=== PATIENT | male | born 1980 | race African-American/Black ===

== ENCOUNTER 2020-06-10 11:12 | Emergency (ER) | payer MEDICARE ==
[~2020-06-10] VITALS: Ht 185.4 cm; Wt 93.0 kg
[2020-06-10] MEDS ORDERED: OXYCODONE HCL5 MG PO (11:52)
[2020-06-10] MEDS ORDERED: HYDROMORPHONE HC4 MG PO (11:53)
[2020-06-10] MEDS ORDERED: FAMOTIDINE40 MG PO (11:55)
[2020-06-10] MEDS ORDERED: HYDROXYUREA500 MG PO (11:55)
[2020-06-10] MEDS ORDERED: XARELTO20 MG PO (11:56)
[2020-06-10] MEDS ORDERED: NORTRIPTYLINE H50 MG PO (11:56)
[2020-06-10] MEDS ORDERED: GABAPENTIN300 MG PO (11:56)
[2020-06-10] MEDS ORDERED: TYLOPHEN500 MG PO (11:57)
[2020-06-10] MEDS ORDERED: SENNA LAXATIVE8.6 MG PO (11:57)
[2020-06-10] MEDS ORDERED: ALLERGY25 MG PO (11:58)
[2020-06-10] MEDS ORDERED: NARCAN4 MG (11:58)
--- OUTSIDE RECORDS SUMMARY | 2020-06-10 14:28 | XMS ---
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 Oxygen is the best therapy for Sickle Cell. Place 2L O2 NC regardless of O2 Saturation. IV Fluids are also a consideration and should be given, NS 1L Obtain a Retic Count and CBC at minimum Pain Management should be Dilaudid 0.5mg. up to 1.5-2.0mg total. Additional care guidelines exist for the following facilities: [facility] ( 06/07/2020 ) Hi VISIT COUNT (12 MO.) [address] [facility] [address] [facility] [place] [id number] [facility] TOTAL 32 NOTE: Visits indicate total known visits. ED/UCC VISIT TRACKING (12 MO.) 06/10/2020 11:14 [facility] [place] TYPE: Emergency COMPLAINT: - EXTREMITY PAIN 06/03/2020 17:33 [facility] Val[facility] OR [facility] TYPE: Emergency DIAGNOSES: 0. PAIN EVERYWHERE 05/26/2020 10:36 [facility] [place] TYPE: Emergency DIAGNOSES: - Sickle Cell Pain Crisis - Hb-SS disease with crisis, unspecified - Pain 05/09/2020 06:08 [facility] [place] TYPE: Emergency DIAGNOSES: - Pain - Sickle Cell Pain Crisis - Hb-SS disease with crisis, unspecified 04/28/2020 13:19 [facility] [place] TYPE: Emergency DIAGNOSES: - Generalized Pain - Pain - Hb-SS disease with crisis, unspecified 04/22/2020 09:14 [facility] [place] TYPE: Emergency DIAGNOSES: - Hb-SS disease with crisis, unspecified - crisis - Pain 03/25/2020 18:29 [facility] [place] TYPE: Emergency DIAGNOSES: - Pain in left hip - Pain in left hand - Pain in right thigh - Sickle Cell Pain Crisis - Pain in right leg - Pain in joints of unspecified hand - Hb-SS disease with crisis, unspecified - Pain in left thigh - Pain in right hip - Pain in right hand - Hypokalemia - Dorsalgia, unspecified - Other chest pain - Pain in left leg - pain 03/23/2020 01:49 [facility] [place] TYPE: Emergency DIAGNOSES: - Hb-SS disease with crisis, unspecified - Pain - Sickle Cell Crisis 03/05/2020 12:47 [facility] TYPE: Emergency DIAGNOSES: 0. GENERALIZED PAIN 03/03/2020 17:04 N[facility]ant ARGUELLES TYPE: Emergency DIAGNOSES: - Sickle-cell disease without crisis - Sickle Cell Pain Crisis - Weakness - Low back pain 02/19/2020 13:46 [facility] TYPE: Emergency DIAGNOSES: 0. PAIN EVERWHERE VOMITING 02/18/2020 15:20 [facility] [place] TYPE: Emergency DIAGNOSES: - Pain - Sickle Cell Pain Crisis - Hb-SS disease with crisis, unspecified 02/13/2020 09:29 [facility] TYPE: Emergency DIAGNOSES: 0. SICKLE CELL CRISIS 02/11/2020 16:58 Nishant ARGUELLES TYPE: Emergency DIAGNOSES: - Hb-SS disease with crisis, unspecified - Emesis - vomitting difficulty breathing 02/09/2020 12:49 N[facility]ant ARGUELLES TYPE: Emergency DIAGNOSES: - Sickle Cell Crisis - Sickle Cell Pain Crisis - Hb-SS disease with crisis, unspecified 02/06/2020 16:07 [facility] [place] TYPE: Emergency DIAGNOSES: - Sickle Cell Pain Crisis - Weakness - Hb-SS disease with crisis, unspecified 01/29/2020 11:13 [facility] [place] TYPE: Emergency DIAGNOSES: - Sickle Cell Pain Crisis - Unspecified abdominal pain - Abdominal Pain 01/28/2020 09:54 [facility] [place] TYPE: Emergency DIAGNOSES: - Sicillcell - Sickle-cell disease without crisis - Opioid dependence, uncomplicated - Pain 01/24/2020 12:18 [facility] [place] TYPE: Emergency DIAGNOSES: - Sickle Cell Pain Crisis - Hb-SS disease with crisis, unspecified - Opioid dependence, uncomplicated - Sickle cell crisis 01/22/2020 17:48 [facility] [place] TYPE: Emergency DIAGNOSES: - Hb-SS disease with crisis, unspecified - Sickle Cell Pain Crisis - Weakness Plus 12 More Visits INPATIENT VISIT TRACKING (12 MO.) 01/02/2020 14:33 [facility] [place] TYPE: Oncology DIAGNOSES: - Hyperbilirubinemia - Hb-SS disease with crisis, unspecified 12/02/2019 10:47 [facility] [place] TYPE: Internal Medicine DIAGNOSES: - Sickle Cell Crisis - Hb-SS disease with crisis, unspecified [email or web address]
== END 2020-06-10 14:16 | disposition home or self-care (01) ==
LOC: ED 11:12
DX: D57.00 Hb-SS disease with crisis, unspecified (principal); Z88.8 Allergy status to other drugs, medicaments and biological substances; Z88.0 Allergy status to penicillin; Z88.1 Allergy status to other antibiotic agents; Z91.013 Allergy to seafood; Z79.899 Other long term (current) drug therapy; Z79.891 Long term (current) use of opiate analgesic
CPT/HCPCS: 80053; 85025; 96374; 96375; 96376; 99284-25; J1170; J1200; J7030

== ENCOUNTER 2020-11-04 15:17 | Emergency (ER) | payer MEDICARE, MEDICAID ==
[~2020-11-04] VITALS: Ht 185.4 cm; Wt 81.7 kg
[~2020-11-04 15:17] MED LIST: ALLERGY25 MG PO; FAMOTIDINE40 MG PO; GABAPENTIN300 MG PO; HYDROMORPHONE HC4 MG PO; HYDROXYUREA500 MG PO; NARCAN4 MG; NORTRIPTYLINE H50 MG PO; OXYCODONE HCL5 MG PO; SENNA LAXATIVE8.6 MG PO; TYLOPHEN500 MG PO; XARELTO20 MG PO
--- OUTSIDE RECORDS SUMMARY | 2020-11-04 15:20 | XMS ---
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 No recent Security Events currently on file CRITERIA MET - 6 ED Visits in 6 Months - [facility] - Has Care Guidelines - History of Sepsis Dx - PDMP - [facility] - 2 Visits in 30 Days CARE PROVIDERS Shakeel MCCORMACK Internal Medicine Current PHONE: Unknown MARIELLE GARCIA Internal Medicine: Hematology \\T\\ 06/11/2020-Current ALEX Oncology PHONE: [phone] ROXANNE DUMONT [facility] Medicine 06/07/2020-Current PHONE: Unknown Guidelines Source: [facility] Guidelines Date: 10/30/2020 Care Recommendation: BACKGROUND: 39 y/o male patient, : 1980, with a history of chronic pain, sickle cell anemia, sickle cell crisis, chronic sickle cell pain, abdominal pain, chronic narcotic therapy. \\T\\nbsp; \\T\\nbsp; \\T\\nbsp; ASSOCIATED CONCERNS/ ASSESSMENT: \\T\\nbsp; \\T\\nbsp; \\T\\nbsp; - Controlled Substance Alert:\\T\\nbsp;Dr. Alex Delaney routinely prescribes hydromorphone and gabapentin tablets (confirmed 10/30/2020). \\T\\nbsp; - - \\T\\nbsp; - Has infusion clinic appointments for chronic dilaudid dosing, if needed, three times a week. \\T\\nbsp; - 46 ED visits between 10/31/2019 and 10/30/2020 (38 at [facility]). \\T\\ nbsp; - 03/23/2020 - "drove 45 minutes down to our ER after not getting enough pain medications at another ER.\\T\\nbsp;I confronted him about this and he did initially continue to deny it however he admitted finally that he was indeed seen earlier today." \\T\\nbsp; \\T\\nbsp; \\T\\nbsp; - Recommendation: 06/07/2019 - Per August Juan - Pain management related to disease process:\\T\\nbsp; - Oxygen is the best therapy for Sickle Cell.\\T\\nbsp;2L per N/C regardless of saturations.\\T\\nbsp; - IV fluids are also a consideration; NS 1 liter.\\T\\nbsp; - Obtain Retic Count and CBC at minimum.\\T\\nbsp; - If pain management necessary, beyond infusion clinic availability: Dilaudid 0. 5 mg up to 1.5-2.0 mg total.\\T\\nbsp; - - \\T\\nbsp; - - \\T\\nbsp; \\T\\nbsp; [facility] CONTACTS: \\T\\nbsp;PCP:\\T\\nbsp;Dr. Roxanne Gallo, [facility]\\T\\nbsp; Hematology \\T\\amp; Pain Management:\\T\\nbsp; Dr. Alex Delaney, [facility]\\T\\nbsp; Insurance: Medicare\\T\\nbsp; \\T\\nbsp; REFERENCES (Useful notes): \\T\\nbsp;03/23/2020 ED Physician Notes "Disposition"\\T\\ nbsp; \\T\\nbsp; Date of Last Review: 10/30/2020\\T\\nbsp; Date of Last Revision : 2020\\T\\nbsp; Additional care guidelines exist for the following facilities: [facility] ( 09/05/2020 ) Hi VISIT COUNT (12 MO.) [address] [facility] 2 [facility] Raymond Mijares[address] [facility] TOTAL 46 NOTE: Visits indicate total known visits. ED/UCC VISIT TRACKING (12 MO.) 11/04/2020 15:18 [facility] [place] TYPE: Emergency COMPLAINT: - SOB, IN PAIN 11/04/2020 11:07 [facility] [place] TYPE: Emergency DIAGNOSES: - Chest pain, unspecified - Chest Pain - Pain - Sickle-cell disease without crisis 10/22/2020 04:53 [facility] [place] TYPE: Emergency DIAGNOSES: - pain - Dorsalgia, unspecified 10/21/2020 08:40 [facility] [place] TYPE: Emergency DIAGNOSES: - Sickle-cell disease without crisis - Pain - Abdominal Pain 10/04/2020 04:17 [facility] [place] TYPE: Emergency DIAGNOSES: - Pain, unspecified - Sickle Cell episode - Sickle-cell disease without crisis - Sickle Cell Pain Crisis 09/30/2020 10:10 [facility] [place] TYPE: Emergency DIAGNOSES: - Hb-SS disease with crisis, unspecified - Sickle Cell Pain Crisis - Pain - Elevated white blood cell count, unspecified 09/27/2020 09:49 [facility] [place] TYPE: Emergency DIAGNOSES: - Hb-SS disease with crisis, unspecified - Vomiting (Severe) - Abdominal Pain 09/25/2020 12:42 [facility] [place] TYPE: Emergency COMPLAINT: - BODY PAIN, CRAMPING, TENSING DIAGNOSES: - Other sickle-cell disorders without crisis - Allergy to seafood - Allergy status to penicillin - detention (current) use of opiate analgesic - Other sickle-cell disorders without crisis - Allergy status to other antibiotic agents - 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 09/23/2020 20:25 [facility] [place] TYPE: Emergency DIAGNOSES: - Unspecified abdominal pain - vomiting - Hb-SS disease with crisis, unspecified - Abdominal Pain - Other specified postprocedural states - Vomiting, unspecified 09/06/2020 14:58 [facility] [place] TYPE: Emergency DIAGNOSES: - Sickle Cell Pain Crisis - Pain - Hb-SS disease with crisis, unspecified 08/26/2020 05:35 [facility] [place] TYPE: Emergency DIAGNOSES: - general pain - Sickle Cell Pain Crisis - Hb-SS disease with crisis, unspecified 08/22/2020 06:11 [facility] [place] TYPE: Emergency DIAGNOSES: - Elevated white blood cell count, unspecified - Sickle Cell Pain Crisis - Hb-SS disease with crisis, unspecified - Sickle cell 07/03/2020 01:09 [facility] [place] TYPE: Emergency DIAGNOSES: - Bacteremia - Sepsis, unspecified organism - general pain - Sickle Cell Pain Crisis 06/23/2020 11:53 [facility] [place] TYPE: Emergency DIAGNOSES: - Sickle Cell Pain Crisis - Hb-SS disease with crisis, unspecified - Sickle Cell Crisis 06/10/2020 11:14 [facility] [place] TYPE: Emergency COMPLAINT: - EXTREMITY PAIN NON INJURY DIAGNOSES: - Allergy status to penicillin - Hb-SS disease with crisis, unspecified - Allergy status to other drugs, medicaments and biological substances - Allergy to seafood - 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io DREX[facility] OR [facility] TYPE: Emergency DIAGNOSES: 0. PAIN EVERYWHERE 05/26/2020 10:36 [facility] [place] TYPE: Emergency DIAGNOSES: - Sickle Cell Pain Crisis - Hb-SS disease with crisis, unspecified - Pain 05/09/2020 06:08 [facility] [place] TYPE: Emergency DIAGNOSES: - Pain - Sickle Cell Pain Crisis - Hb-SS disease with crisis, unspecified 04/28/2020 13:19 [facility] [place] TYPE: Emergency DIAGNOSES: - Generalized Pain - Pain - Hb-SS disease with crisis, unspecified 04/22/2020 09:14 [facility] Mireya [facility]ail[facility]honny [facility] [place] TYPE: Emergency DIAGNOSES: - Hb-SS disease with crisis, unspecified - crisis - Pain Plus 26 More Visits INPATIENT VISIT TRACKING (12 MO.) 07/03/2020 15:06 [facility] TYPE: Oncology DIAGNOSES: - Bacteremia - Unspecified Escherichia coli [E. coli] as the cause of diseases classified elsewhere - severe anemia, sickle cell disease, bacteremia 07/03/2020 01:09 [facility] [place] TYPE: Internal Medicine DIAGNOSES: - Sepsis, unspecified organism - Bacteremia 01/02/2020 14:33 [facility] [place] TYPE: Oncology DIAGNOSES: - Hyperbilirubinemia - Hb-SS disease with crisis, unspecified 12/02/2019 10:47 [facility] [place] TYPE: Internal Medicine DIAGNOSES: - Sickle Cell Crisis - Hb-SS disease with crisis, unspecified [email or web address]
== END 2020-11-04 18:04 | disposition home or self-care (01) ==
LOC: ED 15:17
DX: D57.00 Hb-SS disease with crisis, unspecified (principal); F17.200 Nicotine dependence, unspecified, uncomplicated; Z88.0 Allergy status to penicillin; Z88.1 Allergy status to other antibiotic agents; Z88.8 Allergy status to other drugs, medicaments and biological substances; Z91.013 Allergy to seafood; Z79.899 Other long term (current) drug therapy; Z79.891 Long term (current) use of opiate analgesic
CPT/HCPCS: 80053; 81001; 85025; 85045; 96374; 96375; 96376; 99284-25; J1170; J2405; J7030

== ENCOUNTER 2021-02-15 03:06 | Emergency (ER) | payer MEDICARE, MEDICAID ==
[~2021-02-15] VITALS: Ht 185.4 cm; Wt 81.7 kg
== END 2021-02-15 05:20 | disposition home or self-care (01) ==
LOC: ED 03:06
DX: D57.00 Hb-SS disease with crisis, unspecified (principal); D72.829 Elevated white blood cell count, unspecified; F17.200 Nicotine dependence, unspecified, uncomplicated; Z91.013 Allergy to seafood; Z88.0 Allergy status to penicillin; Z88.1 Allergy status to other antibiotic agents; Z79.01 Long term (current) use of anticoagulants; Z79.899 Other long term (current) drug therapy
CPT/HCPCS: 80053; 85007; 85025; 85045; 96374; 96375; 99284-25; J1885; J2405; J2765; J7030

== ENCOUNTER 2023-10-30 11:13 | Inpatient (IN) | payer MEDICARE, OTHER ==
[~2023-10-30] VITALS: Ht 185.4 cm; Wt 80.5 kg
[~2023-10-30 11:13] MED LIST changes: -FAMOTIDINE40 MG PO; -NARCAN4 MG; +NARCAN4 MG NAS; +ONDANSETRON ODT8 MG PO; +PEPCID AC20 MG PO; +PROMETHAZINE HC25 M1 PO
[2023-10-30] MEDS ORDERED: ONDANSETRON ODT4 MG PO (11:26)
[2023-10-30] MEDS ORDERED: CLONAZEPAM1 M1 PO (11:27)
[2023-10-30] MEDS ORDERED: OMEPRAZOLE40 MG PO (11:27)
[2023-10-30] MEDS ORDERED: HYDROmorphone HCL 1 MG/ML SYR IV PRN ×2 (11:30→16:15)
[2023-10-30] MEDS ORDERED: ondansetron HCL 4 MG/2 ML VIAL IV ONE (11:30)
[2023-10-30] MEDS ORDERED: SODIUM CHLORIDE 0.9% 1,000 ML IV ONE (11:30)
[2023-10-30 12:55] LABS: BILIRUBIN, URINE NEGATIVE (negative); BLOOD/HGB, URINE NEGATIVE (Negative); KETONE, URINE NEGATIVE (Negative); LEUK ESTERASE, URINE NEGATIVE (negative); NITRITE, URINE NEGATIVE (negative); PH, URINE 6.5 (5-7)
[2023-10-30 13:38] LABS: ALBUMIN 4.2 g/dL (3.4-5.0); ALBUMIN/GLOBULIN RATIO 1.35 (1.1-2.4); BILIRUBIN, TOTAL 3.9 ng/dL (0.2-1.0); BUN/CREATININE RATIO 6.38 (6.0-28.6); CALCIUM 8.8 mg/dL (8.5-10.1); CREATININE, SERUM 0.94 mg/dL (0.70-1.30); PROTEIN, TOTAL 7.3 g/dL (6.4-8.2)
[2023-10-30] MEDS ORDERED: SODIUM CHLORIDE 0.9% 1,000 ML IV PRN (14:15)
[2023-10-30 14:47] LABS: HEMATOCRIT 27.4 % (35.0-50.0); HEMOGLOBIN 9.2 g/dL (12.0-18.0); MCH 38.8 (27-36); MCHC 33.5 g/dl (30-36); MCV 115.9 fl (81-99); RBC 2.36 M/ul (4.3-5.7); RDW 16.3 (10.5-15.0)
[2023-10-30 15:06] LABS: BASOPHILS, MANUAL DIFF 1; EOSINOPHILS, MANUAL DIFF 1; LYMPHOCYTES, MANUAL DIFF 40; MONOCYTES, MANUAL DIFF 5; NEUTROPHILS, MANUAL DIFF 53
[2023-10-30] MEDS ORDERED: ondansetron HCL 4 MG/2 ML VIAL IV PRN (16:00)
[2023-10-30] MEDS ORDERED: PROCHLORPERAZINE EDISYLATE 10 MG/2 ML VIAL IV PRN (16:00)
[2023-10-30] MEDS ORDERED: LACTATED RINGER'S 1,000 ML IV SCH (16:00)
[2023-10-30] MEDS ORDERED: PROMETHAZINE12.5 M1 PO (16:17)
--- NOTE | 2023-10-30 16:20 | NUR ---
PT ARRIVES TO FLOOR VIA STRETCHER. PT AMBULATES FROM STRETCHER TO BED. BEDSIDE REPORT RECIEVED FROM LUISA Petty RN. PT A&O TO ALL. VITALS COMPLETE. PT REPORTING PAIN 01/08. IV STARTED BY SAMUEL THOMASON VIA US GUIDED. 1805 PRN PAIN MEDICAITON ADMINISTERED, SEE MAR. RT CALLED TO INFORM THEM THAT PT USES CPAP HS. 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 PT AGREEABLE. PT PROVIDED SANDWICH BOX. WATER PROVIDED. PT DENIES ANY OTHER NEEDS AT THIS TIME. CALL LIGHT IN REACH.
[2023-10-30 16:30] VITALS: BP 132/78
[2023-10-30] MEDS ORDERED: CENTRUM ADULTS1 EACH PO (16:49)
--- NOTE | 2023-10-30 16:50 | NUR ---
MED REC COMPLETE
[2023-10-30] MEDS ORDERED: NICOTINE 14 MG/24 HR 1 EA TDSY TD PRN (17:00)
[2023-10-30 18:37] VITALS: BP 133/79
[2023-10-30] MEDS ORDERED: FAMOTIDINE 20 MG TAB PO PRN (19:15)
[2023-10-30] MEDS ORDERED: HYDROmorphone HCL 2 MG/ML VIAL IV PRN (19:15)
--- NOTE | 2023-10-30 19:32 | NUR ---
REPORT RECIEVED FROM DAY SHIFT RN. PATIENT RESTING IN BED EATING A SANDWICH. NO CURRENT NEEDS AT THIS TIME. CALL LIGHT IN REACH.
--- NOTE | 2023-10-30 20:13 | NUR ---
2000 LABS DRAWN BY THIS RN THROUGH IV IN LEFT UPPER ARM AND SENT TO LAB. BLOOD BAND VERIFIED BY THIS RN AND LOLA BAKER. RT REMAINS IN PATIENT ROOM.
[2023-10-30 20:25] LABS: HEMATOCRIT 22.6 % (35.0-50.0)
[2023-10-30 20:27] LABS: ANION GAP 14.4 (7-21); BUN/CREATININE RATIO 5.1 (6.0-28.6); CALCIUM 8.3 mg/dL (8.5-10.1); CREATININE, SERUM 0.98 mg/dL (0.70-1.30); POTASSIUM 3.4 mmol/L (3.5-5.1)
[2023-10-30 20:28] LABS: BASOPHILS 1.6 % (0-2); EOSINOPHILS 2.6 % (0-6); HEMOGLOBIN 7.8 g/dL (12.0-18.0); LYMPHOCYTES 35.5 % (24-44); MCH 39.7 (27-36); MCHC 34.6 g/dl (30-36); MCV 114.7 fl (81-99); MONOCYTES 10.1 % (0-12); NEUTROPHILS 50.2 % (39-80); PLATELET COUNT 342 K/uL (140-440); RBC 1.97 M/ul (4.3-5.7); RDW 15.8 (10.5-15.0)
[2023-10-30 20:39] LABS: ALBUMIN 3.6 g/dL (3.4-5.0); ALBUMIN/GLOBULIN RATIO 1.29 (1.1-2.4); BILIRUBIN, DIRECT 0.3 mg/dL (0.0-0.2); BILIRUBIN, INDIRECT 2.7 (0.1-0.7); PROTEIN, TOTAL 6.4 g/dL (6.4-8.2)
--- NOTE | 2023-10-30 20:45 | NUR ---
CALL LIGHT ANSWERED. PATIENT REPORTS 12/08 GENERALIZED BODY PAIN. PRN PAIN MEDICATION ADMINSITERED. BILAT SCLERA YELLOW, PATIENT STATES "THIS HAPPENS WHEN I AM DEHYDRATED, IT WILL GO AWAY". AM LABS SCHEDULED 10/30 AT 0600. IV FLUSHED WNL AND GOOD BLOOD RETURN. IV FLUID INFUSING PER ORDER. PATIENT HAS NO FURTHER NEEDS. CALL LIGHT IN REACH. FRESH WATER PROVIDED.
[2023-10-30 20:46] VITALS: BP 135/60
[2023-10-30 20:58] LABS: ABO A; ANTIBODY SCREEN NEGATIVE; RH NEGATIVE
[2023-10-30] MEDS ORDERED: HYDROXYUREA 500 MG CAP PO SCH (21:00)
[2023-10-30] MEDS ORDERED: MELATONIN 3 MG TAB PO PRN (21:00)
[2023-10-30] MEDS ORDERED: GABAPENTIN 300 MG CAP PO SCH ×2 (21:00)
--- NOTE | 2023-10-30 21:13 | NUR ---
COMMERCIAL CREDIT LEAD SBA PT TO BATHROOM WITH IV TOWER. PT AMBULATES WELL. PT OUTPUT NOTED AND URINAL EMPTIED. PT BACK IN BED AND CPOX RECONNECTED AND NASAL CANNULA BACK ON. PT STATES NO FURTHER NEEDS AT THIS TIME. CALL LIGHT WITHIN REACH.
--- NOTE | 2023-10-30 22:11 | NUR ---
CALL LIGHT ANSWERED. REPORTS 7/10 BODY PAIN, PRN PAIN MEDICATION ADMINISTERED. PRN SLEEP MEDICATION ADMINISTERED, SEE MAR. FRESH WATER PROVIDED. PATIENT HAS NO FURTHER NEEDS. CALL LIGHT IN REACH.
--- NOTE | 2023-10-30 23:24 | NUR ---
CALL LIGHT ANSWERED. PATIENT REPORTS 5/10 BODY PAIN. PRN PAIN MEDICATION ADMINISTERED. NO FURTHER NEEDS. CALL LIGHT IN REACH.
--- NOTE | 2023-10-31 00:36 | NUR ---
CALL LIGHT ANSWERED. PATIENT REPORTS 5/10 BODY PAIN. PRN PAIN AND NAUSEA MEDICATION ADMINISTERED PER PATIENT REQUEST. JELLO PROVIDED. NO FURTHER NEEDS. CALL LIGHT IN REACH.
[2023-10-31 01:55] VITALS: BP 118/75
--- NOTE | 2023-10-31 02:03 | NUR ---
PT REPORTS 6/10 GENERALIZED BODY PAIN, PRN PAIN MED PROVIDED. NEW BAG OF IV FLUIDS PROVIDED. ICEWATER AND WARM BLANKET PROVIDED. RN PROVIDED PT EDUCATION AND THERAPUTIC COMMUNICATION CONCERNING PLAN OF CARE AND PAIN MANAGEMENT. ALL QUESTIONS AND CONCERNS ADDRESSED. IV WNL, FLUSHED WELL. CPOX 100% ON 3L NC. PRIMARY RN IN ROOM AT THIS TIME.
--- NOTE | 2023-10-31 02:10 | NUR ---
PATIENT UP AT SIDE OF BED TO USE URINAL & VOID DARK YELLOW URINE. PATIENT BACK TO BED. NO FURTHER NEEDS. CALL LIGHT IN REACH.
--- NOTE | 2023-10-31 03:07 | NUR ---
CALL LIGHT ANSWERED. PATIENT REPORTS 6/10 BODY PAIN. PRN PAIN MEDICATIONS ADMINISTERED. NO FURTHER NEEDS. CALL LIGHT IN REACH.
[2023-10-31 04:29] VITALS: BP 122/65
--- NOTE | 2023-10-31 04:35 | NUR ---
CALL LIGHT ANSWERED. PATIENT REQUESTING PRN PAIN MEDICATION, MEDICATION ADMINISTERED. VS AND I&Os OBTAINED AND RECORDED. PATIENT DENIES FURTHER NEEDS AT THIS TIME AND STATES "I AM GOING TO TRY AND SLEEP". CALL LIGHT IN REACH.
[2023-10-31 05:26] LABS: HEMOGLOBIN 7.5 g/dL (12.0-18.0)
[2023-10-31 05:31] LABS: BASOPHILS 1.9 % (0-2); EOSINOPHILS 7.7 % (0-6); HEMATOCRIT 22.3 % (35.0-50.0); LYMPHOCYTES 46.2 % (24-44); MCHC 33.7 g/dl (30-36); MCV 115.6 fl (81-99); MONOCYTES 9.4 % (0-12); NEUTROPHILS 34.8 % (39-80); PLATELET COUNT 331 K/uL (140-440); RBC 1.93 M/ul (4.3-5.7)
--- NOTE | 2023-10-31 05:40 | NUR ---
CALL LIGHT ANSWERED. PATIENT REQUESTING MEDICATION, PRN PAIN MEDICATION ADMINSTERED. NO FURTHER NEEDS. CALL LIGHT IN REACH.
[2023-10-31 05:41] LABS: ALBUMIN 3.4 g/dL (3.4-5.0); ALBUMIN/GLOBULIN RATIO 1.26 (1.1-2.4); ANION GAP 13.6 (7-21); BILIRUBIN, TOTAL 2.7 ng/dL (0.2-1.0); BUN/CREATININE RATIO 5.15 (6.0-28.6); CALCIUM 8.3 mg/dL (8.5-10.1); CREATININE, SERUM 0.97 mg/dL (0.70-1.30); MAGNESIUM 1.6 mg/dL (1.8-2.4); PHOSPHORUS, INORGANIC 4.4 mg/dL (2.5-4.9); POTASSIUM 3.6 mmol/L (3.5-5.1); PROTEIN, TOTAL 6.1 g/dL (6.4-8.2)
--- NOTE | 2023-10-31 07:10 | NUR ---
REPORT RECEIVED FROM ALEJANDRA RN, ALL QUESTIONS ANSWERED. PT AWAKE IN BED. DENIES NEEDS AT THIS TIME CALL LIGHT IN REACH
[2023-10-31] MEDS ORDERED: PANTOPRAZOLE SODIUM 40 MG TABEC PO SCH (07:30)
--- NOTE | 2023-10-31 07:37 | NUR ---
PT C/O 11/08 GENERALIZED PAIN, GIVEN RPN PAIN MEDICATION. SEE EMAR. PT DENIES FURTHER NEEDS AT THIS TIME. CALL LIGHT IN REACH.
[2023-10-31] MEDS ORDERED: MAGNESIUM CHLORIDE 64 MG TABCR PO ONE (07:45)
[2023-10-31] MEDS ORDERED: Rivaroxaban 10 MG TAB PO SCH (09:00)
[2023-10-31] MEDS ORDERED: HYDROXYUREA 500 MG CAP PO SCH (09:00)
[2023-10-31] MEDS ORDERED: diphenhydrAMINE HCL 25 MG CAP PO SCH (09:00)
[2023-10-31 09:16] VITALS: BP 143/68
--- NOTE | 2023-10-31 11:15 | NUR ---
PT RESTING QUIETLY WITH EYES CLOSED, RESPIRATIONS EVEN AND UNLABORED. O2 SAT 97% ON 3LNC. CALL LIGHT IN REACH.
[2023-10-31] MEDS ORDERED: PHARMACY RENAL DOSE ADJUSTMENT 1 DOSE MISC PO SCH (12:00)
--- NOTE | 2023-10-31 12:34 | EKG ---
[facility] [address] [facility] [place] [address] Signed Sinus bradycardia Biventricular hypertrophy Abnormal ECG No previous ECGs available Confirmed by Filiberto Donovan MD () on 10/31/2023 12:34:30 PM Electronically Signed By: FILIBERTO DONOVAN MD 10/31/23 1234 PATIENT NAME: YVONNE GRAVES Electrocardiogram DATE OF : [birth year] PHYSICIAN: FILIBERTO DONOVAN MD REPORT #: [id number] REPORT IS CONFIDENTIAL AND NOT TO BE RELEASED WITHOUT AUTHORIZATION
[2023-10-31 13:12] VITALS: BP 117/72
[2023-10-31 17:47] VITALS: BP 138/83
[2023-10-31 18:03] LABS: BASOPHILS 1.3 % (0-2); EOSINOPHILS 10.8 % (0-6); HEMATOCRIT 22.1 % (35.0-50.0); HEMOGLOBIN 7.7 g/dL (12.0-18.0); LYMPHOCYTES 42.2 % (24-44); MCH 39.7 (27-36); MCHC 34.7 g/dl (30-36); MCV 114.6 fl (81-99); MONOCYTES 11.8 % (0-12); NEUTROPHILS 33.9 % (39-80); PLATELET COUNT 335 K/uL (140-440); RBC 1.93 M/ul (4.3-5.7); RDW 15.8 (10.5-15.0)
--- NOTE | 2023-10-31 20:00 | NUR ---
PT UTILIZES CALL LIGHT, REQUESTS PRN PAINMEDICATION. PT RATES PAIN 6/10, GENERALIZED. PRN ADMINISTERED. SEE EMAR. PT PROVIDED WITH FRESH SODA. URINAL EMPTIED. PT DENIES FURTHER NEEDS AT THIS TIME. CALL LIGHT IN REACH.
[2023-10-31 21:08] VITALS: BP 123/79
--- NOTE | 2023-10-31 21:15 | NUR ---
PT ASSESSMENT COMPLETE. PT RATES PAIN 5/10, GENERALIZED. PRN ADMINISTERED, SEE EMAR. PT REPORTS OCCASIONAL SOB, STATES THIS IS NORMAL WHILE HE'S IN "CRISIS". O2 @ 3 LPM VIA NC. CPOX, SAO2 99%. BILATERAL LOWER LEGS TENDER TO TOUCH. PT STATES THIS IS UNCHANGED DURING ADMISSION. IV FLUSHED WITH 10 ML NS. PATENT. IVF INFUSING ORDERED. PT URINAL EMPTIED. PT DENIES FURTHER NEEDS AT THIS TIME. CALL LIGHT IN REACH.
--- NOTE | 2023-11-01 00:10 | NUR ---
PT UTILIZES CALL LIGHT, REQUESTS PRN PAIN AND NAUSEA MEDICATION. ADMINISTERED, SEE EMAR. SODA REFILLED PER PT REQUEST. PT DENIES FURTHER NEEDS AT THIS TIME. CALL LIGHT IN REACH.
--- NOTE | 2023-11-01 02:20 | NUR ---
PT CALLS TO REPORT 5/10 GENERALIZED PAIN. PRN PAIN MED PROVIDED. WARM BLANKET PROVIDED. URINAL EMPTIED. PT STATES NO OTHER NEEDS. CALL LIGHT IN REACH.
--- NOTE | 2023-11-01 03:23 | NUR ---
PT UTILIZES CALL LIGHT, REQUESTS PRN FOR PAIN. PT RATING PAIN 7/10, GENERALIZED. PT STATES HE IS HAVING A HARD TIME GETTING TO SLEEP DUE TO PAIN. PRN ADMINISTERED, SEE EMAR. PT DENIES SOB, OR NAUSEA. PT WITH CPAP IN PLACE. PT STATES IT IS UNCOMFORTABLE, WISHES TO WEAR NC ONLY AT THIS TIME. CPAP PLACED IN STANDBY. O2 IN PLACE @ 3LPM. LUNG SOUNDS DIM THROUGHOUT. PT CONITNUES TO REPORT BILATERAL LOWER LEG TENDERNESS. STATES THIS IS UNCHANGED FROM PREVIOUS. IV FLUSHED WITH 10 ML NS, WNL. EXTRA PILLOW PROVIDED. PT DENIES FURTHER NEEDS AT THIS TIME. CALL LIGHT IN REACH.
[2023-11-01 04:55] VITALS: BP 115/72
--- NOTE | 2023-11-01 06:46 | NUR ---
PT UTILIZES CALL LIGHT, REQUESTS PRN PAIN MEDCIATION FOR PAIN 09/08, GENERALIZED. ADMINISTERED, SEE EMAR. URINAL EMPTIED. PT DENIES FURTHER NEEDS. CALL LIGHT IN REACH.
--- NOTE | 2023-11-01 08:06 | NUR ---
MORNING ASSESSMENT IS COMPLETE. PATIENT GIVEN 1.5MG OF IV DILAUDID FOR 4/10 SOMATIC PAIN. 4MG OF IV ZOFRAN GIVEN WITH BREAKFAST. PATIENT IS ON 3L OF 02 FOR 100% SATS. LUNGS ARE CLEAR TO ASCULTATION. PATIENT IS ALERT AND ORIENTED, IS SITTING UP IN BED TO EAT BREAKFAST. NO OTHER NEEDS AT THIS TIME.
[2023-11-01] MEDS ORDERED: HYDROmorphone HCL 2 MG/ML VIAL IV PRN (09:15)
[2023-11-01] MEDS ORDERED: HYDROmorphone HCL 4 MG TAB PO PRN (09:15)
[2023-11-01 10:00] VITALS: BP 146/82
--- NOTE | 2023-11-01 10:11 | NUR ---
PATIENT GIVEN 4MG OF PO DILAUDID FOR 4/10 SOMATIC PAIN. PATIENT IS ON 2L OF O2 AND IS 96-100%. VITALS COMPLETE AND STABLE. I&O COMPLETE. PATIENT DENIES OTHER NEEDS AT THIS TIME.
--- NOTE | 2023-11-01 11:04 | NUR ---
PHYSICAL THERAPY IN TO WORK WITH PATIENT, PATIENT REFUSED AND SAID HE WAS PLANNING TO TAKE A NAP.
--- NOTE | 2023-11-01 12:53 | NUR ---
PATIENT AMBULATED IN THE HALLWAY WITH PHYSICAL THERAPY AND PORTABLE 2L OF O2.
--- NOTE | 2023-11-01 13:07 | NUR ---
PATIENT GIVEN 1.5MG OF IV DILAUDID FOR 4/10 SOMATIC PAIN. PATIENT DENIES OTHER NEEDS.
[2023-11-01 13:56] VITALS: BP 134/68
--- NOTE | 2023-11-01 13:57 | NUR ---
PATIENT GIVEN PO DILAUDID FOR 4/10 SOMATIC PAIN. PATIENT IS ON 1L O2 VIA NC FOR 96% SATS. VITALS COMPLETE.
--- NOTE | 2023-11-01 14:27 | NUR ---
PATIENT UP TO BATHROOM INDEPENDANTLY.
--- NOTE | 2023-11-01 16:05 | NUR ---
PATIENT IS RESTING IN BED, PATIENT CONTINUES TO RATE SOMATIC PAIN 4/10 CONSISTENTLY THROUGHOUT THE DAY. NO OTHER NEEDS NOTED.
--- NOTE | 2023-11-01 17:21 | NUR ---
PATIENT GIVEN 1.5MG OF IV DILAUDID FOR 4/10 SOMATIC PAIN. PATIENT DENIES OTHER NEEDS AT THIS TIME.
[2023-11-01 17:59] VITALS: BP 134/73
--- NOTE | 2023-11-01 18:01 | NUR ---
PATIENT IS RESTING IN BED. VITALS COMPLETE AND STABLE. PATIENT IS ON 1L OF 02 FOR 96-97% SATS. I&O COMPLETE AND PATIENT HAS EXTRA FOOD IN ROOM FOR SNACKS LATER. 4MG PO DILAUDID GIVEN FOR 4/10 SOMATIC PAIN. 4MG OF IV ZOFRAN GIVEN FOR NAUSEA.
[2023-11-01 21:13] VITALS: BP 142/75
--- NOTE | 2023-11-01 21:51 | NUR ---
PT ASSESSMENT COMPLETE. PT SITTING UP IN BED LOOKING AT CELL PHONE AND EATING SANDWICH. PT RATES PAIN 4/10, REQUESTS PRN PAIN MEDICATION, ADMINISTERED. PT DENIES NAUSEA OR SOB. CPOX AT BEDSIDE. O2 IN PLACE A T 1 LPM VIA NC. SAO2 94%. IV FLUSHED WITH 10 ML NS. WNL. IVF INFUSING ORDERED. PT SODE REFILLED PER REQUEST. PT DENIES FURTHER NEEDS ATHIS TIME. PT STAES HE WILL STAY UP TO UNTIL MIDNIGHT, HE HAS TO PAY A BILL THEN. CALL LIGHT IN REACH.
--- NOTE | 2023-11-01 23:00 | NUR ---
PT REQUESTS PRN PAIN MEDCIATION, RATES PAIN 4/10. ADMINISTERED, SEE EMAR. GREGORY PROVIDED X 2. PT DENIES FURTHER NEEDS. CALL LIGHT IN REACH.
--- NOTE | 2023-11-02 01:15 | NUR ---
PT UTILIZES CALL LIGHT. REQUESTS PRN PAIN MEDICATION. RATES PAIN 09/08. PT PROVIDED WITH 2 PUDDINGS PER REQUEST. DENIES FURTHER NEEDS. CALL LIGHT IN REACH.
--- NOTE | 2023-11-02 03:21 | NUR ---
PT C/O 10 GENERALIZED PAIN, MEDICATED WITH DILAUDID 4MG PO. O2 IN PLCE, LUNGS CLEAR, VOIDING LARGE AMOUNTS OF YELLOW URINE. IVF INFUSING lij. 2 CHOCOLATE PUDINGS AND JANA POP GIVEN ON REQUEST, COOP WITH SECOND ASSESSMENT
--- NOTE | 2023-11-02 04:03 | NUR ---
RESTING, NO S/SX DISTRESS, O2 1L NC IN PLACE, CPOX AT 97%. HAS VOIDED QS. PLACED ON CITOTOXYC PRECAUTIONS
--- NOTE | 2023-11-02 04:30 | NUR ---
REPORT RECEIVED FROM TEVIN BAKER. PT RESTING IN BED, EYES CLOSED. RR EVEN, UNLABORED. CALL LIGHT IN REACH.
[2023-11-02 05:46] VITALS: BP 135/78
--- NOTE | 2023-11-02 06:07 | NUR ---
PT CALLS FOR PAIN MEDS. PT STATES PAIN IS 3/10, ACHE, CONSTANT. VS AND I&O COMPLETED. IJ WNL, CDI. IV FLUIDS INFUSING PER ORDER. PT ASKS FOR HIS WALLET FROM THE IN ROOM LOCK BOX TO "PAY MY BILLS". PT WALLET GIVEN TO HIM. PT STATES NO OTHER NEEDS AT THIS TIME. CALL LIGHT IN REACH.
--- NOTE | 2023-11-02 06:31 | NUR ---
PT RESTING IN BED, WATCHING TV. NC @ 1L, CPOX 97%. CALL LIGHT IN REACH.
--- NOTE | 2023-11-02 07:04 | NUR ---
REPORT RECEIVED FROM WORD PROCESSING SUPERVISOR RN LOLY. PATIENT IS LYING IN BED WITH EYES CLOSED AND RESPIRATIONS ARE EVEN AND UNLABORED. CPOX IS AT THE BEDSIDE. CALL LIGHT AND PERSONAL BELONGINGS ARE WITHIN REACH.
--- NOTE | 2023-11-02 08:10 | NUR ---
0730 AND 0900 MEDICATIONS ADMINISTERED PER THE EMAR. IV ZOFRAN AND PO DILAUDID ALSO ADMINISTERED AT THIS TIME. FULL ASSESSMENT COMPLETE AND DOCUMENTED IN THE CHART. PATIENT IS ALERT AND ORIENTED TIMES FOUR. LUNG SOUNDS ARE CLEAR IN ALL LUNG GIORDANO BILATERALLY. PATIENT IS ON 1L NC. CARDIAC WITH NORMAL S1 AND S2 ON AUSCULTATION. RADIAL PULSES ARE STRONG BILATERALLY. SENSATION INTACT AND WITH NO COMPLAINTS OF NUMBNESS AND TINGLING. PAIN RATED 3.5/10 EVERYWHERE. PRN PO DILAUDID ADMINISTERED. BOWEL TONES ARE ACTIVE IN ALL FOUR QUADRANTS. PATIENT IS ON A REGULAR DIET AND THEIR LAST BOWEL MOVEMENT WAS 11/01/23. IV SITE IS CLEAN, DRY, AND INTACT. IV FLUSHED WITH 10 ML NORMAL SALINE. LR IS INFUSING AT 125 ML/HR. SKIN WITH SCARS AND TATTOOS SCATTERED. PATIENT URINAL DUMPED. PATIENT IS EATING BREAKFAST AT THIS TIME. PATIENT STATED NO FURTHER NEEDS, CALL LIGHT AND PERSONAL BELONGINGS ARE WITHIN REACH.
[2023-11-02 09:05] VITALS: BP 141/79
[2023-11-02 09:10] VITALS: BP 141/79
== END 2023-11-02 10:40 | disposition home or self-care (01) | DRG 812 ==
LOC: ED 11:13 → MS 11:15 → ED 11:15 → MS 15:55
PROVIDERS: Family Medicine; Internal Medicine; ADMIT Internal Medicine; ATTEND Internal Medicine
DX: D57.00 Hb-SS disease with crisis, unspecified (principal); E87.0 Hyperosmolality and hypernatremia; E86.0 Dehydration; F17.210 Nicotine dependence, cigarettes, uncomplicated; F12.90 Cannabis use, unspecified, uncomplicated; D64.9 Anemia, unspecified; E80.6 Other disorders of bilirubin metabolism; E83.42 Hypomagnesemia; Z88.0 Allergy status to penicillin; Z88.1 Allergy status to other antibiotic agents; Z98.890 Other specified postprocedural states; Z88.8 Allergy status to other drugs, medicaments and biological substances; Z91.013 Allergy to seafood; Z79.899 Other long term (current) drug therapy; Z79.01 Long term (current) use of anticoagulants
CPT/HCPCS: 36415; 71045; 80048; 80053; 80076; 81003; 82248; 83735; 84100; 84484; 85025; 85045; 85060; 86850; 86900; 86901; 93005; 93010; 94660; 94760; 94762; 96361; 96374; 96375; 96376; 97162; 99285-25; A9270; J1170; J2405; J7030; J7121

== ENCOUNTER 2024-03-18 09:29 | Emergency (ER) | payer MEDICARE, OTHER ==
[~2024-03-18] VITALS: Ht 185.4 cm; Wt 76.2 kg
--- OUTSIDE RECORDS SUMMARY | ~2024-03-18 | XMS | Continuity of Care Document ---
Demographics + + + | Address | [address] | | | [place] [address] | + + + | Preferred Language | Unknown | + + + | Marital Status | Unknown | + + + | Restorationism Affiliation | Unknown | + + + | Race | Unknown | + + + | Ethnic Group | Not or | + + + Author + + + | Author | [facility] | + + + | Organization | [facility] | + + + | Address | [address] | | | [place] [address] | + + + | Phone | | + + + Care Team Providers + + + + | Care Emblem Maker Name | Role | Phone | + + + + Unavailable | Unavailable | + + + + Allergies No information. Encounters No information. Functional Status No information. Immunizations No information. Medications No information. Problems + + + + | date | description | facility | + + + + | 2024-02-20 16:16:02 | Hb-SS disease with crisis, | [facility] | | | unspecified | | + + + + Procedures No information. Results/Labs No information. Social History +--------+ + + | date | description | facility | +--------+ + + Vital Signs No information."
[~2024-03-18 09:29] MED LIST changes: +CENTRUM ADULTS1 EACH PO; +CLONAZEPAM1 M1 PO; +OMEPRAZOLE40 MG PO; +ONDANSETRON ODT4 MG PO; +PROMETHAZINE12.5 M1 PO
[2024-03-18] MEDS ORDERED: SODIUM CHLORIDE 0.9% 1,000 ML IV ONE (10:00)
[2024-03-18] MEDS ORDERED: HYDROmorphone HCL 1 MG/ML SYR IV PRN (10:00)
[2024-03-18] MEDS ORDERED: ondansetron HCL 4 MG/2 ML VIAL IV ONE (10:00)
[2024-03-18] MEDS ORDERED: KETAMINE in NS 50 MG/5 ML SYR IV ONE (10:00)
[2024-03-18 10:21] LABS: ALBUMIN 4.7 g/dL (3.4-5.0); ALBUMIN/GLOBULIN RATIO 1.47 (1.1-2.4); ANION GAP 19.4 (7-21); BILIRUBIN, TOTAL 3.6 ng/dL (0.2-1.0); BUN/CREATININE RATIO 12.28 (6.0-28.6); CREATININE, SERUM 1.14 mg/dL (0.70-1.30); POTASSIUM 4.4 mmol/L (3.5-5.1); PROTEIN, TOTAL 7.9 g/dL (6.4-8.2)
[2024-03-18 10:26] LABS: HEMATOCRIT 30.1 % (35.0-50.0); HEMOGLOBIN 10.1 g/dL (12.0-18.0); MCH 37.2 (27-36); MCHC 33.7 g/dl (30-36); MCV 110.4 fl (81-99); PLATELET COUNT 345 K/uL (140-440); RBC 2.73 M/ul (4.3-5.7); RDW 16.5 (10.5-15.0)
[2024-03-18] MEDS ORDERED: KETOROLAC TROMETHAMINE 30 MG/ML VIAL IV ONE (10:30)
[2024-03-18 10:45] LABS: LYMPHOCYTES, MANUAL DIFF 33; MONOCYTES, MANUAL DIFF 14; NEUTROPHILS, MANUAL DIFF 53
[2024-03-18] MEDS ORDERED: HEParin SOD (PORCINE) 500 UNIT/5 ML ML IV ONE (11:30)
[2024-03-18 12:08] VITALS: BP 124/83
== END 2024-03-18 12:09 | disposition home or self-care (01) ==
LOC: ED 09:29
PROVIDERS: Emergency Medicine
DX: D57.00 Hb-SS disease with crisis, unspecified (principal); F17.200 Nicotine dependence, unspecified, uncomplicated; Z88.1 Allergy status to other antibiotic agents; Z88.0 Allergy status to penicillin; Z91.013 Allergy to seafood; Z79.899 Other long term (current) drug therapy; Z79.01 Long term (current) use of anticoagulants
CPT/HCPCS: 36415; 80053; 85025; 96361; 96374; 96375; 96376; 99284-25; J1885; J2405; J3490; J7030

== ENCOUNTER 2024-06-18 11:25 | Emergency (ER) | payer MEDICARE, OTHER ==
[~2024-06-18] VITALS: Ht 185.4 cm; Wt 93.9 kg
--- OUTSIDE RECORDS SUMMARY | ~2024-06-18 | XMS | Continuity of Care Document ---
Demographics + + + | Address | [address] | | | [place] [address] | + + + | Preferred Language | Unknown | + + + | Marital Status | Never | + + + | Advent Affiliation | Unknown | + + + | Race | Unknown | + + + | Ethnic Group | Not or | + + + Author + + + | Author | [facility] | + + + | Organization | [facility] | + + + | Address | [address] | | | [place] [address] | + + + | Phone | | + + + Care Team Providers + + + + | Care Shearer [employer] Name | Role | Phone | + [...] facility | + + + + | 2024-04-30 12:25:03 | Hb-SS disease with crisis, | [facility]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 Results/Labs No information. Social History +--------+ + + | date | description | facility | +--------+ + + Vital Signs No information."
[2024-06-18] MEDS ORDERED: KETAMINE in NS 50 MG/5 ML SYR IV ONE (11:45)
[2024-06-18] MEDS ORDERED: SODIUM CHLORIDE 0.9% 1,000 ML IV ONE (11:45)
[2024-06-18] MEDS ORDERED: KETOROLAC TROMETHAMINE 30 MG/ML VIAL IV ONE (11:45)
[2024-06-18] MEDS ORDERED: HYDROmorphone HCL 2 MG/ML VIAL IV PRN (11:45)
[2024-06-18] MEDS ORDERED: ondansetron HCL 4 MG/2 ML VIAL IV ONE (11:45)
[2024-06-18 12:09] LABS: BASOPHILS 0.7 % (0-2); EOSINOPHILS 1.7 % (0-6); HEMATOCRIT 27.3 % (35.0-50.0); HEMOGLOBIN 9.3 g/dL (12.0-18.0); MCH 36.1 (27-36); MCHC 34.1 g/dl (30-36); MCV 105.9 fl (81-99); MONOCYTES 8.9 % (0-12); NEUTROPHILS 68.7 % (39-80); PLATELET COUNT 358 K/uL (140-440); RBC 2.58 M/ul (4.3-5.7); RDW 19.2 (10.5-15.0)
[2024-06-18 12:17] LABS: ALBUMIN 4.1 g/dL (3.4-5.0); ALBUMIN/GLOBULIN RATIO 1.14 (1.1-2.4); ANION GAP 15.5 (7-21); BUN/CREATININE RATIO 9.25 (6.0-28.6); CALCIUM 8.8 mg/dL (8.5-10.1); CREATININE, SERUM 1.08 mg/dL (0.70-1.30); POTASSIUM 3.5 mmol/L (3.5-5.1); PROTEIN, TOTAL 7.7 g/dL (6.4-8.2)
[2024-06-18 15:18] VITALS: BP 144/88
== END 2024-06-18 15:18 | disposition home or self-care (01) ==
LOC: ED 11:25
PROVIDERS: Emergency Medicine
DX: D57.00 Hb-SS disease with crisis, unspecified (principal); F17.200 Nicotine dependence, unspecified, uncomplicated; Z88.0 Allergy status to penicillin; Z88.1 Allergy status to other antibiotic agents; Z91.013 Allergy to seafood; Z79.01 Long term (current) use of anticoagulants; Z79.899 Other long term (current) drug therapy
CPT/HCPCS: 36415; 80053; 85025; 85060; 96374; 96375; 96376; 99283-25; J1171; J1885; J2405; J3490; J7030

== ENCOUNTER 2024-08-09 15:03 | Emergency (ER) | payer MEDICARE, OTHER ==
[~2024-08-09] VITALS: Ht 185.4 cm; Wt 81.0 kg
--- OUTSIDE RECORDS SUMMARY | 2024-08-09 15:09 | XMS | Continuity of Care Document ---
Demographics + + + | Address | [address] | | | [place] [address] | + + + | Preferred Language | Unknown | + + + | Marital Status | Unknown | + + + | Congregational Affiliation | Unknown | + + + | Race | Unknown | + + + | Ethnic Group | Not or | + + + Author + + + | Author | [facility] | + + + | Organization | [facility] | + + + | Address | [address] | | | [place] [address] | + + + | Phone | | + + + Care Team Providers + + + + | Care Experimental Psychologist Name | Role | Phone | + + + + Unavailable | Unavailable | + + + + Allergies No information. Encounters No information. Functional Status No information. Immunizations No information. Medications No information. Problems + + + + | date | description | facility | + + + + | 2024-06-04 12:54:38 | Hb-SS disease with crisis, | [facility] | | | unspecified | | + + + + | 2024-06-04 12:54:38 | Nausea with vomiting, | [facility] | | | unspecified | | + + + + | 2024-07-27 00:20:55 | Sickle Cell Pain Crisis | [facility] | + + + + | 2024-07-27 01:59:13 | Hb-SS disease with crisis, | [facility] | | | unspecified | | + + + + | 2024-07-27 18:53:49 | Sickle Cell Pain Crisis | [facility] | + + + + | 2024-07-27 21:00:12 | Sickle-cell disease | [facility] | | | without crisis | | + + + + | 2024-07-27 21:00:12 | Opioid dependence, | [facility] | | | uncomplicated | | + + + + | 2024-07-27 21:00:12 | Chronic pain syndrome | [facility] | + + + + Procedures No information. Results/Labs No information. Social History +--------+ + + | date | description | facility | +--------+ + + Vital Signs No information."
[2024-08-09] MEDS ORDERED: ondansetron HCL 4 MG/2 ML VIAL IV ONE (18:45)
[2024-08-09] MEDS ORDERED: HYDROmorphone HCL 1 MG/ML SYR IV PRN (18:45)
[2024-08-09] MEDS ORDERED: SODIUM CHLORIDE 0.9% 1,000 ML IV PRN (18:45)
[2024-08-09 19:15] LABS: ALBUMIN 4.6 g/dL (3.4-5.0); ALBUMIN/GLOBULIN RATIO 1.39 (1.1-2.4); ANION GAP 14.9 (7-21); BILIRUBIN, TOTAL 3.3 mg/dL (0.2-1.0); BUN/CREATININE RATIO 9.8 (6.0-28.6); CALCIUM 9.3 mg/dL (8.5-10.1); CREATININE, SERUM 1.02 mg/dL (0.70-1.30); POTASSIUM 3.9 mmol/L (3.5-5.1); PROTEIN, TOTAL 7.9 g/dL (6.4-8.2)
[2024-08-09 19:45] LABS: MCH 37.1 (27-36); NEUTROPHILS 66.8 % (39-80)
[2024-08-09 19:48] LABS: BASOPHILS 1.1 % (0-2); EOSINOPHILS 0.5 % (0-6); HEMATOCRIT 24.5 % (35.0-50.0); HEMOGLOBIN 8.4 g/dL (12.0-18.0); LYMPHOCYTES 22.6 % (24-44); MCHC 34.2 g/dl (30-36); MCV 108.4 fl (81-99); PLATELET COUNT 352 K/uL (140-440); RBC 2.26 M/ul (4.3-5.7); RDW 18.6 (10.5-15.0)
[2024-08-09] MEDS ORDERED: DILAUDID2 MG PO (20:52)
[2024-08-09] MEDS ORDERED: HYDROmorphone HCL 2 MG HOME.PACK PO ONE (21:00)
[2024-08-09 21:06] VITALS: BP 139/83
--- NOTE | 2024-08-10 22:47 | EKG ---
[facility] [address] [facility] [address] [facility] [address] [place] [address] Signed Normal sinus rhythm Biventricular hypertrophy Abnormal ECG When compared with ECG of 30-OCT-2023 11:39, QT has lengthened Confirmed by Filiberto Donovan MD () on 08/10/2024 10:47:38 PM Electronically Signed By: FILIBERTO DONOVAN MD 08/10/24 2247 PATIENT NAME: YVONNE GRAVES Electrocardiogram DATE OF : 78 PHYSICIAN: FILIBERTO DONOVAN MD REPORT #: [id number] REPORT IS CONFIDENTIAL AND NOT TO BE RELEASED WITHOUT AUTHORIZATION
== END 2024-08-09 21:09 | disposition home or self-care (01) ==
LOC: ED 15:03
PROVIDERS: Emergency Medicine
DX: D57.00 Hb-SS disease with crisis, unspecified (principal); F17.200 Nicotine dependence, unspecified, uncomplicated; Z79.899 Other long term (current) drug therapy; Z91.013 Allergy to seafood; Z88.0 Allergy status to penicillin; Z88.1 Allergy status to other antibiotic agents; Z88.5 Allergy status to narcotic agent
CPT/HCPCS: 36415; 71045; 80053; 84484; 85025; 85060; 93005; 93010; 96374; 96375; 96376; 99285-25; J1171; J2405; J7030

== ENCOUNTER 2024-10-05 17:19 | Emergency (ER) | payer MEDICARE, OTHER ==
[~2024-10-05] VITALS: Ht 185.4 cm; Wt 75.0 kg
--- OUTSIDE RECORDS SUMMARY | ~2024-10-05 | XMS | Continuity of Care Document ---
Demographics + + + | Address | [address] | | | [place] [address] | + + + | Preferred Language | Unknown | + + + | Marital Status | Unknown | + + + | Jain Affiliation | Unknown | + + + | Race | Unknown | + + + | Ethnic Group | Not or | + + + Author + + + | Author | [facility] | + + + | Organization | [facility] | + + + | Address | [address] | | | [place] [address] | + + + | Phone | | + + + Care Team Providers + + + + | Care Segmental Paving Supervisor Name | Role | Phone | + + + + Unavailable | Unavailable | + + + + Allergies No information. Encounters No information. Functional Status No information. Immunizations No information. Medications No information. Problems + + + + | date | description | facility | + + + + | 2024-07-27 [...]
[~2024-10-05 17:19] MED LIST changes: +DILAUDID2 MG PO
[2024-10-05] MEDS ORDERED: HYDROMORPHONE HC8 MG PO (17:34)
[2024-10-05] MEDS ORDERED: SODIUM CHLORIDE 0.9% 1,000 ML IV ONE (18:00)
[2024-10-05] MEDS ORDERED: HYDROmorphone HCL 1 MG/ML SYR IV PRN (18:00)
[2024-10-05] MEDS ORDERED: ondansetron HCL 4 MG/2 ML VIAL IV ONE (18:00)
[2024-10-05 18:48] LABS: HEMOGLOBIN 8.5 g/dL (12.0-18.0)
[2024-10-05 18:51] LABS: BASOPHILS 1.2 % (0-2); EOSINOPHILS 1.4 % (0-6); HEMATOCRIT 23.9 % (35.0-50.0); LYMPHOCYTES 23.9 % (24-44); MCH 37.8 (27-36); MCHC 35.7 g/dl (30-36); MCV 105.9 fl (81-99); MONOCYTES 9.1 % (0-12); NEUTROPHILS 64.4 % (39-80); PLATELET COUNT 379 K/uL (140-440); RBC 2.26 M/ul (4.3-5.7); RDW 17.3 (10.5-15.0)
[2024-10-05 19:02] LABS: ALBUMIN 4.6 g/dL (3.4-5.0); ALBUMIN/GLOBULIN RATIO 1.35 (1.1-2.4); BILIRUBIN, TOTAL 4.1 mg/dL (0.2-1.0); BUN/CREATININE RATIO 13.22 (6.0-28.6); CALCIUM 9.1 mg/dL (8.5-10.1); CREATININE, SERUM 1.21 mg/dL (0.70-1.30)
[2024-10-05 21:34] VITALS: BP 131/86
== END 2024-10-05 21:34 | disposition home or self-care (01) ==
LOC: ED 17:19
PROVIDERS: Emergency Medicine
DX: D57.1 Sickle-cell disease without crisis (principal); R10.9 Unspecified abdominal pain; F17.200 Nicotine dependence, unspecified, uncomplicated; Z88.0 Allergy status to penicillin; Z91.013 Allergy to seafood; Z79.899 Other long term (current) drug therapy; Z79.2 Long term (current) use of antibiotics
CPT/HCPCS: 36415; 80053; 85025; 96374; 96375; 96376; 99284-25; J1171; J2405; J7030

== ENCOUNTER 2024-11-13 15:01 | Emergency (ER) | payer MEDICARE, OTHER ==
[~2024-11-13] VITALS: Ht 185.4 cm; Wt 76.5 kg
[~2024-11-13 15:01] MED LIST changes: +HYDROMORPHONE HC8 MG PO
[2024-11-13] MEDS ORDERED: SODIUM CHLORIDE 0.9% 1,000 ML IV PRN ×2 (15:45→18:00)
[2024-11-13] MEDS ORDERED: HYDROmorphone HCL 1 MG/ML SYR IV ONE ×2 (15:45→17:30)
[2024-11-13 15:51] LABS: HEMATOCRIT 24.5 % (40.1-51.0); HEMOGLOBIN 8.6 g/dL (13.7-17.5); MCH 36.3 PG (25.7-32.2); MCHC 35.1 g/dL (32.3-36.5); MCV 103.4 fL (79.0-92.2); PLATELET COUNT 367 K/uL (163-337); RBC 2.37 M/uL (4.63-6.08)
[2024-11-13 15:58] LABS: ALBUMIN 4.4 g/dL (3.4-5.0); ALBUMIN/GLOBULIN RATIO 1.16 (1.1-2.4); BILIRUBIN, TOTAL 3.1 mg/dL (0.2-1.0); BUN/CREATININE RATIO 10.52 (6.0-28.6); CALCIUM 9.6 mg/dL (8.5-10.1); CREATININE, SERUM 1.14 mg/dL (0.70-1.30); PROTEIN, TOTAL 8.2 g/dL (6.4-8.2)
[2024-11-13 16:03] LABS: BASOPHILS, MANUAL DIFF 3; LYMPHOCYTES, MANUAL DIFF 11; MONOCYTES, MANUAL DIFF 6; NEUTROPHILS, MANUAL DIFF 80
[2024-11-13] MEDS ORDERED: HYDROmorphone HCL 1 MG/ML SYR IV PRN (18:00)
[2024-11-13] MEDS ORDERED: ondansetron HCL 4 MG/2 ML VIAL IV ONE (18:00)
[2024-11-13 19:32] VITALS: BP 122/87
== END 2024-11-13 19:32 | disposition home or self-care (01) ==
LOC: ED 15:01
PROVIDERS: Emergency Medicine
DX: D57.00 Hb-SS disease with crisis, unspecified (principal); Z91.013 Allergy to seafood; Z88.0 Allergy status to penicillin; Z79.899 Other long term (current) drug therapy; Z79.2 Long term (current) use of antibiotics; Z79.01 Long term (current) use of anticoagulants
CPT/HCPCS: 36415; 80053; 85025; 96374; 96375; 96376; 99284-25; J1171; J2405; J7030

== ENCOUNTER 2024-11-16 04:59 | Emergency (ER) | payer MEDICARE, OTHER ==
[~2024-11-16] VITALS: Ht 185.4 cm; Wt 76.5 kg
[2024-11-16] MEDS ORDERED: HYDROmorphone HCL 2 MG/ML VIAL IV PRN (05:30)
[2024-11-16] MEDS ORDERED: LACTATED RINGER'S 1,000 ML IV ONE (05:30)
[2024-11-16] MEDS ORDERED: diphenhydrAMINE HCL 50 MG/ML VIAL IV ONE (05:30)
[2024-11-16] MEDS ORDERED: ondansetron HCL 4 MG/2 ML VIAL IV ONE (05:45)
[2024-11-16] MEDS ORDERED: DILAUDID8 MG PO (05:48)
[2024-11-16] MEDS ORDERED: HYDROmorphone HCL 2 MG TAB PO ONE (06:30)
[2024-11-16 07:22] VITALS: BP 128/81
== END 2024-11-16 07:23 | disposition home or self-care (01) ==
LOC: ED 04:59
DX: D57.00 Hb-SS disease with crisis, unspecified (principal); Z79.899 Other long term (current) drug therapy; Z91.013 Allergy to seafood; Z88.1 Allergy status to other antibiotic agents; Z88.5 Allergy status to narcotic agent; F17.200 Nicotine dependence, unspecified, uncomplicated
CPT/HCPCS: 96374; 96375; 96376; 99283-25; J1171; J1200; J2405; J7121

== ENCOUNTER 2024-11-30 11:30 | Emergency (ER) | payer MEDICARE, OTHER ==
[~2024-11-30] VITALS: Ht 185.4 cm; Wt 76.5 kg
[~2024-11-30 11:30] MED LIST changes: +DILAUDID8 MG PO
[2024-11-30 12:39] LABS: ALT (SGPT) 39.0 U/L (14-59); AST (SGOT) 17.0 U/L (15-37); GLOMERULAR FILTRATION RATE,EST 78.0 mL/min (>60); PROTEIN, TOTAL 8.3 g/dL (6.4-8.2); UREA NITROGEN 11.0 mg/dL (7-18)
[2024-11-30 12:58] LABS: MCH 35.5 PG (25.7-32.2); MCHC 34.4 g/dL (32.3-36.5); MCV 103.3 fL (79.0-92.2); RBC 2.42 M/uL (4.63-6.08)
[2024-11-30 13:12] LABS: LYMPHOCYTES, MANUAL DIFF 28; MONOCYTES, MANUAL DIFF 13; NEUTROPHILS, MANUAL DIFF 59
[2024-11-30] MEDS ORDERED: HEParin SOD (PORCINE) 500 UNIT/5 ML ML IV ONE (14:45)
[2024-11-30 15:27] VITALS: BP 143/81
== END 2024-11-30 15:27 | disposition home or self-care (01) ==
LOC: ED 11:30
PROVIDERS: Emergency Medicine
DX: D57.00 Hb-SS disease with crisis, unspecified (principal); F17.200 Nicotine dependence, unspecified, uncomplicated; Z88.0 Allergy status to penicillin; Z88.1 Allergy status to other antibiotic agents; Z91.013 Allergy to seafood; Z79.899 Other long term (current) drug therapy
CPT/HCPCS: 36415; 80053; 83735; 85025; 96374; 96375; 96376; 99284-25; J1171; J2405

== ENCOUNTER 2024-12-13 15:13 | Emergency (ER) | payer MEDICARE, OTHER ==
[~2024-12-13] VITALS: Ht 185.4 cm; Wt 76.5 kg
[~2024-12-13 15:13] MED LIST changes: +TYLENOL EXTRA500 MG PO; -TYLOPHEN500 MG PO
[2024-12-13] MEDS ORDERED: SODIUM CHLORIDE 0.9% 1,000 ML IV PRN ×2 (15:45→17:00)
[2024-12-13] MEDS ORDERED: MORPHINE SULFATE 10 MG/ML VIAL IV ONE (15:45)
[2024-12-13 18:13] VITALS: BP 118/76
[2024-12-14] MEDS ORDERED: CLONAZEPAM1 MG PO (16:12)
[2024-12-14] MEDS ORDERED: FETZIMA20 MG PO (16:15)
== END 2024-12-13 18:13 | disposition home or self-care (01) ==
LOC: ED 15:13
DX: D57.00 Hb-SS disease with crisis, unspecified (principal); F17.200 Nicotine dependence, unspecified, uncomplicated; Z91.013 Allergy to seafood; Z88.5 Allergy status to narcotic agent; Z79.899 Other long term (current) drug therapy
CPT/HCPCS: 96361; 96374; 96376; 99283-25; J1171; J7030

== ENCOUNTER 2024-12-14 12:39 | Observation (INO) | payer MEDICARE, OTHER ==
[~2024-12-14] VITALS: Ht 185.4 cm; Wt 76.5 kg
[2024-12-14] MEDS ORDERED: SODIUM CHLORIDE 0.9% 2,000 ML IV PRN (13:15)
[2024-12-14 13:42] LABS: ALT (SGPT) 33.0 U/L (14-59); AST (SGOT) 22.0 U/L (15-37); GLOMERULAR FILTRATION RATE,EST 76.0 mL/min (>60); INR 1.21 (0.80-1.30); PROTEIN, TOTAL 7.9 g/dL (6.4-8.2); PROTIME 14.5 Sec (11.2-14.2); UREA NITROGEN 22.0 mg/dL (7-18)
[2024-12-14 14:41] LABS: BLOOD/HGB, URINE NEGATIVE (Negative); KETONE, URINE NEGATIVE (Negative); LEUK ESTERASE, URINE NEGATIVE (negative); NITRITE, URINE NEGATIVE (negative)
[2024-12-14] MEDS ORDERED: ALTEPLASE 2 MG/2 ML VIAL IV SCH (15:00)
--- NOTE | 2024-12-14 15:45 | EKG ---
[facility] [address] [facility] [place] [address] Signed Normal sinus rhythm Biventricular hypertrophy Abnormal ECG When compared with ECG of 09-AUG-2024 18:33, No significant change was found Confirmed by Farhad Youssef MD ([id number]) on 12/14/2024 3:45:37 PM Electronically Signed By: FARHAD YOUSSEF MD 12/14/24 1545 PATIENT NAME: YVONNE GRAVES JR Electrocardiogram DATE OF : [birth year] PHYSICIAN: FARHAD YOUSSEF MD REPORT #: [id number] REPORT IS CONFIDENTIAL AND NOT TO BE RELEASED WITHOUT AUTHORIZATION
[2024-12-14] MEDS ORDERED: CLONAZEPAM1 MG PO (16:12)
[2024-12-14] MEDS ORDERED: FETZIMA20 MG PO (16:15)
[2024-12-14 16:52] LABS: LACTIC ACID, BLOOD 0.6 mmol/L (0.4-2.0)
[2024-12-14 17:14] VITALS: BP 141/76
[2024-12-14 17:46] VITALS: BP 141/76
[2024-12-14] MEDS ORDERED: ACETAMINOPHEN 325 MG TAB PO PRN (18:00)
[2024-12-14] MEDS ORDERED: LACTATED RINGER'S 1,000 ML IV SCH (18:00)
--- NOTE | 2024-12-14 18:20 | NUR ---
PT LYING IN BED, PRN PAIN MEDICATION GIVEN PER PT REQUEST. LABS PULLED FROM PORT ACCESS. PORT FLUSHED WITH 20ML NS. FLUIDS RUNNING PER ORDER. SNACKS AND SANDWICH BOX GIVEN TO PT PER REQUEST. PT STATES "I NEED TO TALK TO THE WHEN HE COMES AGAIN BECAUSE I USUALLY TAKE 8MG OF DILAUDED AT HOME AND I SHOULD BE GETTING THE DILAUDED EVERY TWO HOURS INSTEAD OF EVERY FOUR". THIS RN CALLS DR. JONES AND UPDATES ON PT STATEMENT, NO NEW ORDERS AT THIS TIME. PT STATES NO FURTHER NEEDS AT THIS TIME, CALL LIGHT WITHIN REACH.
[2024-12-14 18:51] LABS: LACTIC ACID, BLOOD 0.4 mmol/L (0.4-2.0)
--- NOTE | 2024-12-14 19:20 | NUR ---
REPORT RECEIVED FROM SAMUEL COLLAZO. ROUNDED ON pt. RESTING IN BED ON CELL PHONE. RATES PAIN 02/08. PUTTING MUSTARD ON SANDWICH. REQUESTS NEW PAIN REGIMEN FROM MD, STATES "THIS IS WAY LESS THAN I TAKE AT HOME". EDUCATED pt ON DIFFERENCE BETWEEN PO AND IV DILAUDID, THERAPEUTIC COMMUNICATION PROVIDED. DISCUSSED THAT [facility] CALLED MD AND NOTIFIED, MD WILL BE BY TO SEE pt AND DISCUSS PLAN OF CARE.
--- NOTE | 2024-12-14 19:45 | NUR ---
LABS DRAWN FROM PORT PER PROTOCOL. IVF NOW INFUSING WNL. LAB STATES BLOOD CLOTTED. HUMAN RESOURCE ANALYST TO DRAW LABS. pt RESTING IN BED, SHOWS RN PICTURES OF THREE KIDS. DENIES ADDITIONAL NEEDS AT THIS TIME. CALL LIGHT IN REACH.
[2024-12-14 20:14] LABS: MCH 36.6 PG (25.7-32.2); MCHC 34.5 g/dL (32.3-36.5); MCV 105.9 fL (79.0-92.2); RBC 1.86 M/uL (4.63-6.08)
[2024-12-14 20:26] LABS: EOSINOPHILS, MANUAL DIFF 1; LYMPHOCYTES, MANUAL DIFF 47; MONOCYTES, MANUAL DIFF 1; NEUTROPHILS, MANUAL DIFF 51
[2024-12-14] MEDS ORDERED: GABAPENTIN 300 MG CAP PO SCH (21:00)
[2024-12-14] MEDS ORDERED: MELATONIN 3 MG TAB PO SCH (21:00)
[2024-12-14 21:19] VITALS: BP 123/73
--- NOTE | 2024-12-14 21:38 | NUR ---
IN ROOM FOR VS, VSS. pt REPORTS PAIN 9/10 "ALL OVER". PRN PAIN MEDICAITON ADMINISTERED. PO MEDICATIONS ADMINISTERED. pt PROVIDED WITH JUICE, WATER. IVF INFUSING WNL THROUGH PORT. INDEPENDENT TO RESTROOM FOR VOID. pt INSTRUCTED TO VOID IN URINAL. BACK IN BED. ASSESSMENT COMPLETE. CALL LIGHT AND PERSONAL SUPPLIES WITHIN REACH.
[2024-12-14 21:44] VITALS: BP 123/73
--- NOTE | 2024-12-14 23:59 | NUR ---
CALL LIGHT ANSWERED, pt REQUESTS PRN PAIN MEDICATION AND NAUSEA MEDICATION TOGETHER IF AVAILABLE. DISCUSSED PRNS WITH pt. pt PROVIDED WITH PO SNACK AND SPRITE PER REQUEST. CALL LIGHT IN REACH.
[2024-12-15] VITALS (11 sets, daily range): BP systolic 107–137; BP diastolic 60–77
--- NOTE | 2024-12-15 01:02 | NUR ---
PRN PAIN MEDICATION ADMINISTERED FOR 8/10 REPORTED PAIN ALL OVER. PRN NAUSEA MEDICATION ADMINISTERED. VSS. URINAL EMPTIED. NEW BAG IVF INFUSING WNL. ICE WATER REFILLED. CALL LIGHT AND PERSONAL SUPPLIES WITHIN REACH.
--- NOTE | 2024-12-15 02:54 | NUR ---
CHECKED ON pt. RESTING IN BED WITH EYES CLOSED, SNORING. NO DISTRESS NOTED.
--- NOTE | 2024-12-15 03:50 | NUR ---
CALL LIGHT ANSWRED. PRN PAIN MEDICATION ADMINISTERED FOR REPORTED 7.5-8/10 PAIN. "GOING DOWN". ICE WATER AND JUICE PROVIDED. IVF INFUSING PORT WNL. CALL LIGHT IN REACH.
--- NOTE | 2024-12-15 04:54 | NUR ---
ROUNDED ON pt, RESTING IN BED WITH EYES CLOSED. NO DISTRESS NOTED.
[2024-12-15 05:29] LABS: BASOPHILS 0.6 % (0.2-1.2); EOSINOPHILS 1.9 % (0.8-7.0); LYMPHOCYTES 42.7 % (21.8-53.1); MCH 37.1 PG (25.7-32.2); MCHC 34.7 g/dL (32.3-36.5); MCV 106.7 fL (79.0-92.2); MONOCYTES 10.5 % (5.3-12.2); NEUTROPHILS 43.8 % (34.0-67.9); RBC 1.78 M/uL (4.63-6.08)
[2024-12-15 05:46] LABS: ALT (SGPT) 29.0 U/L (14-59); AST (SGOT) 21.0 U/L (15-37); GLOMERULAR FILTRATION RATE,EST 88.0 mL/min (>60); PROTEIN, TOTAL 7.1 g/dL (6.4-8.2); UREA NITROGEN 14.0 mg/dL (7-18)
--- NOTE | 2024-12-15 06:45 | NUR ---
pt AWAKE RESTING IN BED, WATCHING TV. VSS. pt RATES PAIN 7/10. PRN PAIN AND NAUSEA MEDICATION ADMINISTERED. URINAL EMPTIED. IVF INFUSING WNL TO PORT, BRISK BLOOD RETURN NOTED. CALL LIGHT AND PERSONAL SUPPLIES WITHIN REACH.
--- NOTE | 2024-12-15 07:23 | NUR ---
PT RESTING IN BED, ON PHONE AND WATCHING TV. PT REPORTS PAIN IS A 7/10, TOLERABLE FOR HIM AT THIS TIME. UPDATED ON PLAN OF CARE, DENIES NEEDS. CALL LIGHT IN REACH
--- NOTE | 2024-12-15 08:55 | NUR ---
CASE MANAGEMENT TO BEDSIDE.
[2024-12-15] MEDS ORDERED: PANTOPRAZOLE SODIUM 40 MG TABEC PO SCH (09:00)
[2024-12-15] MEDS ORDERED: HYDROXYUREA 500 MG CAP PO SCH (09:00)
--- NOTE | 2024-12-15 09:27 | NUR ---
PT NOT AVAILABLE FOR VISIT. PROVIDED PRAYER.
--- NOTE | 2024-12-15 09:30 | NUR ---
INTO SEE PATIENT. PERSONAL HEALTH INFORMATION REVIEWED. PATIENT LIVES IN AN APARTMENT WITH SON. HAS 12 STEPS INTO IT. SAYS HE HAS DIFFCULTY SOMETIMES BUT USES A CANE WHEN PAINFUL. USES OXYGEN AND A CPAP WITH [facility]. DOES DRIVE WHEN NOT PAINFUL. STATES HE DOES NOT HAVE DIFFCULTY PAYING UTILITIES BUT HAS DIFFCULTY WITH FOOD BY THE END OF THE MONTH. PRINTED OUT A FLYER FOR THE FOOD PANTRY IN [place]. PATIENT WILL NEED [facility]SP[facility] AT TIME OF DISCHARGE. NO FUTHER CM NEEDS AT THIS TIME.
--- NOTE | 2024-12-15 09:42 | NUR ---
UR CLINICAL REVIEW: 2 MN [place]EV[place], MEETS OBS FOR SICKLE CELL PAIN CRISIS IV FLUIDS, IV ANALGESICS, TREND LABS MEDICARE OBS 12/14/24 @ 1534 ORDER MATCHES REG NO AUTH REQUIRED PER MEDICARE RULES PLAN TO DC TO HOME WHEN MEDICLALY READY
--- NOTE | 2024-12-15 09:50 | NUR ---
INTO ROOM FOR MEDICATION ADMINISTRATION. UPDATED PT ON PLAN OF CARE FOR TODAY. PT UP TO USE URINAL, AMBULATES INDEPENDENTLY IN ROOM. NOW BACK IN BED, PROVIDED WITH ICE WATER. CALL LIGHT IN REACH, NO DISTRESS NOTED
--- NOTE | 2024-12-15 10:05 | NUR ---
DR JONES AT BEDSIDE
[2024-12-15] MEDS ORDERED: VITAMIN B-121000 MCG PO (10:07)
[2024-12-15] MEDS ORDERED: ONDANSETRON ODT4 MG PO (10:07)
[2024-12-15] MEDS ORDERED: FOLIC ACID0.4 MG PO (10:07)
--- NOTE | 2024-12-15 10:08 | NUR ---
DR. JONES TO BEDSIDE TO DISCUSS POC. STATES TO DC IV FLUIDS AT THIS TIME. ORDER ENTERED, REPEAT BACK PERFORMED. FLUIDS DISCONTINUED. PT STATES NO FURTHER NEEDS AT THIS TIME, CALL LIGHT WITHIN REACH.
--- NOTE | 2024-12-15 10:17 | NUR ---
MED REC COMPLETE
--- NOTE | 2024-12-15 11:12 | NUR ---
PT RESTING IN BED, WATCHING TV. REPORTS IMPROVEMENT IN PAIN, 11/08. DENIES FURTHER NEEDS, CALL LIGHT IN REACH
[2024-12-15] MEDS ORDERED: PHARMACY RENAL DOSE ADJUSTMENT 1 DOSE MISC PO SCH (12:00)
--- NOTE | 2024-12-15 13:10 | NUR ---
PT SITTING UP IN BED. rOOM AIR, C/O 7/10 PAIN ALL OVER. CALM, FLAT AFFECT. MEDICATED WITH DILAUDID 3MG IV.
--- NOTE | 2024-12-15 13:44 | NUR ---
PATIENT IS IN BED AT THIS TIME, CLOCK AND WATCH HANDS DIPPER CHARTED VITALS AND I&O'S, EMPTIED URINAL, CALL LIGHT WITH IN REACH AND NOTHING ELSE NEEDED AT THIS TIME.
--- NOTE | 2024-12-15 13:51 | NUR ---
PT UP TO USE BATHROOM, DENIES NEEDS. UPDATED ON PLAN OF CARE
--- NOTE | 2024-12-15 14:54 | NUR ---
INTO ROOM FOR MEDICATION ADMIN. PT RESTING IN BED, WATCHING TV. PT APPEARS TO BE IN NO DISTRESS, REPORTS PAIN /. NEXT PRN PAIN MED NOT AVAILABLE DUE TO TIME, PT UNDERSTANDING. DENIES FURTHER NEEDS, CALL LIGHT IN REACH
--- NOTE | 2024-12-15 15:33 | NUR ---
RECEIVER/LABORER OFFERED TO SET EVERYTHING UP FOR A SHOWER FOR THE PATIENT, HE REFUSED AND SAID HE WILL SHOWER TOMORROW. RECEIVER/LABORER OFFERED TO CHANGE HIS BEDDING TO WHICH HE ALSO REFUSED AND SAID IT COULD BE CHANGED TOMORROW. CALL LIGHT WITH IN REACH AND NOTHING ELSE NEEDED AT THIS TIME.
--- NOTE | 2024-12-15 16:07 | NUR ---
PT RESTING IN BED, WATCHING TV. PRN PAIN MEDICATION GIVEN FOR 7/10 "ALL OVER BODY" PAIN. DENIES FURTHER NEEDS, CALL LIGHT IN REACH
--- NOTE | 2024-12-15 17:54 | NUR ---
PT RESTING IN BED, EATING DINNER. REPORTS PAIN 5/10, TOLERABLE AT THIS TIME. UPDATED ON PLAN, PROVIDED WITH APPLE JUICE PER REQUEST. CALL LIGHT IN REACH
--- NOTE | 2024-12-15 20:04 | NUR ---
PATIENT LAYING IN BED WITH HOB RAISED. CHEST RISE EQUAL AND UNLABORED. EYES OPEN, PATIENT RESPONDS VERBALLY WHEN SPOKEN TO. PATIENT DENIES CONCERNS AT THIS TIME.
--- NOTE | 2024-12-15 21:02 | NUR ---
VITALS AND I&O OBTAINED. PT GIVEN CRACKERS AND JELLO UPON REQUEST. PT STATES NO FURTHER NEEDS AT THIS TIME. CALL LIGHT WITHIN REACH.
--- NOTE | 2024-12-15 21:53 | NUR ---
PATIENT LAYING IN BED WITH HEAD OF BED RAISED. ASSESMENT COMPLETED AND SCHEDULED MEDICATIONS GIVEN. CHEST RISE EQUAL AND UNLABORED, EYES OPEN, PATIENT RESPONDS VERBALLY WHEN SPOKEN TO. PATIENT DENIES CURRENT CONCERNS.
--- NOTE | 2024-12-16 00:22 | NUR ---
PATIENT LAYING IN BED WITH EYES CLOSED, CHEST RISE EQUAL AND UNLABORED. NO IMMEDIATE CONCERNS NOTED.
[2024-12-16 02:13] VITALS: BP 120/63
--- NOTE | 2024-12-16 02:36 | NUR ---
PATIENT LAYING IN BED WITH EYES CLOSED, CHEST RISE EQUAL AND UNLABORED. NO APPARENT NEEDS NOTED AT THIS TIME.
--- NOTE | 2024-12-16 04:22 | NUR ---
PATIENT IN BED, EYES OPEN, CHEST RISE EQUAL AND UNLABORED. PATIENT REPORTS 7/10 PAIN ALL OVER, REPORTS PAIN HAS BEEN UNCHANGED SINCE LAST DOSE OF MEDICATION. PATIENT IS RESTING IN BED, LIGHTS OFF. SUPPLIED PATIENT WITH FRESH ICE WATER, ADVISED PATIENT TO RE-POSITION IF MORE COMFORTABLE. PATIENT WALKED TO THE BATHROOM WHILE I WAS PRESENT. PATIENT STANDING UPRIGHT WITH STEADY GAIT AND WALKING WITHOUT NEED FOR ASSISTANCE. PATIENT DENIES FURTHER CONCERNS AT THIS TIME.
[2024-12-16 05:33] VITALS: BP 114/60
--- NOTE | 2024-12-16 05:35 | NUR ---
ASSEMBLING FABRICATOR OBTAINED VITALS AND I&O. PT STATES NO NEEDS AT THIS TIME. CALL LIGHT WITHIN REACH.
--- NOTE | 2024-12-16 06:19 | NUR ---
PATIENT IN BED ON RIGHT SIDE. EYES OPEN, CHEST RISE EQUAL AND UNLABORED. CALL LIGHT AND PERSONAL BELONGINGS IN REACH. FOCUSED ASSESMENT COMPLETED. VITAL SIGNS COMPLETED BY BUYER BROKER, MEWS COMPLETE. PATIENT DENIES CONCERNS AT THIS TIME.
[2024-12-16 06:20] VITALS: BP 114/60
[2024-12-16 07:04] LABS: BASOPHILS 1.0 % (0.2-1.2); EOSINOPHILS 4.2 % (0.8-7.0); LYMPHOCYTES 43.2 % (21.8-53.1); MCH 36.9 PG (25.7-32.2); MCHC 34.8 g/dL (32.3-36.5); MCV 106.2 fL (79.0-92.2); MONOCYTES 11.7 % (5.3-12.2); NEUTROPHILS 39.3 % (34.0-67.9); RBC 1.95 M/uL (4.63-6.08)
[2024-12-16 07:27] LABS: ALT (SGPT) 21.0 U/L (14-59); AST (SGOT) 18.0 U/L (15-37); GLOMERULAR FILTRATION RATE,EST 90.0 mL/min (>60); PROTEIN, TOTAL 7.2 g/dL (6.4-8.2); UREA NITROGEN 14.0 mg/dL (7-18)
--- NOTE | 2024-12-16 08:12 | NUR ---
Patient awake, alert and oriented x3, no acute distress. Patient reporting 6/10 generalized pain, admin dilaudid 2mg IV at this time. Right chest port in use-patent, brisk blood return noted. Patient denies further needs at this time. Fresh water provided.
--- NOTE | 2024-12-16 09:06 | NUR ---
PATIENT READY FOR DISCHARGE. CALLED [facility] [place] TO BE HERE AT 10 FOR DISCHARGE.
[2024-12-16] MEDS ORDERED: HEParin SOD (PORCINE) 500 UNIT/5 ML ML IV ONE (09:45)
--- NOTE | 2024-12-16 09:56 | NUR ---
Admin dilaudid 8mg po admin at this time for continued 7/10 generalized pain.
== END 2024-12-16 09:58 | disposition home or self-care (01) ==
LOC: ED 12:39 → MS 12:40
PROVIDERS: Emergency Medicine; ADMIT Student in an Organized Health Care Education/Training Program; ATTEND Student in an Organized Health Care Education/Training Program
DX: D57.00 Hb-SS disease with crisis, unspecified (principal); K21.9 Gastro-esophageal reflux disease without esophagitis; E80.6 Other disorders of bilirubin metabolism; F17.200 Nicotine dependence, unspecified, uncomplicated; Z86.718 Personal history of other venous thrombosis and embolism; Z79.01 Long term (current) use of anticoagulants; Z79.899 Other long term (current) drug therapy; Z88.0 Allergy status to penicillin; Z88.1 Allergy status to other antibiotic agents; Z88.5 Allergy status to narcotic agent; Z91.013 Allergy to seafood
CPT/HCPCS: 36415; 36591; 71045; 80053; 81003; 83605; 83735; 84484; 85025; 85060; 85610; 85730; 87040; 93005; 93010; 96361; 96374; 96375; 96376; 99285-25; A9270; G0378; J1171; J2405; J2997; J7121

== ENCOUNTER 2025-02-08 09:51 | Emergency (ER) | payer MEDICARE, OTHER ==
[~2025-02-08] VITALS: Ht 185.4 cm; Wt 76.9 kg
[~2025-02-08 09:51] MED LIST changes: +CLONAZEPAM1 MG PO; +FETZIMA20 MG PO; +FOLIC ACID0.4 MG PO; +VITAMIN B-121000 MCG PO
[2025-02-08] MEDS ORDERED: HYDROmorphone HCL 1 MG/ML SYR IV ONE (10:00)
[2025-02-08] MEDS ORDERED: SODIUM CHLORIDE 0.9% 2,000 ML IV ONE (10:00)
[2025-02-08 10:23] LABS: MCH 36.4 PG (25.7-32.2); MCHC 35.0 g/dL (32.3-36.5); MCV 104.0 fL (79.0-92.2); RBC 2.47 M/uL (4.63-6.08)
[2025-02-08 10:37] LABS: LYMPHOCYTES, MANUAL DIFF 16; NEUTROPHILS, MANUAL DIFF 84
[2025-02-08 10:39] LABS: ALT (SGPT) 15.0 U/L (14-59); AST (SGOT) 11.0 U/L (15-37); GLOMERULAR FILTRATION RATE,EST 85.0 mL/min (>60); PROTEIN, TOTAL 8.2 g/dL (6.4-8.2); UREA NITROGEN 10.0 mg/dL (7-18)
[2025-02-08 11:20] LABS: BLOOD/HGB, URINE NEGATIVE (Negative); KETONE, URINE NEGATIVE (Negative); LEUK ESTERASE, URINE NEGATIVE (negative); NITRITE, URINE NEGATIVE (negative)
[2025-02-08 12:07] VITALS: BP 127/66
== END 2025-02-08 12:09 | disposition home or self-care (01) ==
LOC: ED 09:51
PROVIDERS: Emergency Medicine
DX: D57.00 Hb-SS disease with crisis, unspecified (principal); F17.200 Nicotine dependence, unspecified, uncomplicated; Z79.899 Other long term (current) drug therapy; Z88.5 Allergy status to narcotic agent; Z88.0 Allergy status to penicillin; Z88.1 Allergy status to other antibiotic agents; Z91.013 Allergy to seafood
CPT/HCPCS: 36415; 80053; 81003; 83690; 85025; 96361; 96374; 96375; 96376; 99284-25; J1171; J2405; J7030

== ENCOUNTER 2025-02-22 09:53 | Emergency (ER) | payer MEDICARE, OTHER ==
[~2025-02-22] VITALS: Ht 185.4 cm; Wt 75.1 kg
[2025-02-22] MEDS ORDERED: SODIUM CHLORIDE 0.9% 2,000 ML IV ONE (10:15)
[2025-02-22] MEDS ORDERED: HYDROmorphone HCL 1 MG/ML SYR IV PRN (10:15)
[2025-02-22 10:27] LABS: MCH 37.4 PG (25.7-32.2); MCHC 36.0 g/dL (32.3-36.5); MCV 103.9 fL (79.0-92.2); RBC 2.57 M/uL (4.63-6.08)
[2025-02-22 10:43] LABS: ALT (SGPT) 19.0 U/L (14-59); AST (SGOT) 11.0 U/L (15-37); GLOMERULAR FILTRATION RATE,EST 71.0 mL/min (>60); PROTEIN, TOTAL 8.8 g/dL (6.4-8.2); UREA NITROGEN 12.0 mg/dL (7-18)
[2025-02-22 10:44] LABS: RETIC, PERCENT 7.4 % (0.51-1.81)
[2025-02-22 10:47] LABS: BASOPHILS, MANUAL DIFF 1; EOSINOPHILS, MANUAL DIFF 1; LYMPHOCYTES, MANUAL DIFF 22; MONOCYTES, MANUAL DIFF 6; NEUTROPHILS, MANUAL DIFF 70
[2025-02-22 11:09] VITALS: BP 124/81
== END 2025-02-22 11:31 | disposition home or self-care (01) ==
LOC: ED 09:53
PROVIDERS: Emergency Medicine
DX: D57.00 Hb-SS disease with crisis, unspecified (principal); F17.200 Nicotine dependence, unspecified, uncomplicated; Z91.013 Allergy to seafood; Z88.0 Allergy status to penicillin; Z88.1 Allergy status to other antibiotic agents; Z88.5 Allergy status to narcotic agent; Z79.01 Long term (current) use of anticoagulants; Z79.899 Other long term (current) drug therapy
CPT/HCPCS: 36415; 80053; 83690; 85025; 85045; 96374; 96375; 96376; 99284-25; J1171; J2405; J7030

== ENCOUNTER 2025-04-05 17:20 | Emergency (ER) | payer MEDICARE, OTHER ==
[~2025-04-05] VITALS: Ht 185.4 cm; Wt 78.8 kg
--- OUTSIDE RECORDS SUMMARY | 2025-04-05 17:49 | XMS | Continuity of Care Document ---
Demographics + + + | Address | [address] | | | [place] [address] | + + + | Preferred Language | Unknown | + + + | Marital Status | Never | + + + | Latter-Day Affiliation | Unknown | + + + | Race | Unknown | + + + | Ethnic Group | Not or | + + + Author + + + | Author | [facility] | + + + | Organization | [facility] | + + + | Address | [address] | | | [place] [address] | + + + | Phone | | + + + Care Team Providers + + + + | Care Program Or Project Administrator Name | Role | Phone | + + + + Unavailable | Unavailable | + + + + Unavailable | Unavailable | + + + + Unavailable | Unavailable | + + + + Unavailable | Unavailable | + + + + Allergies and Intolerances + + + + + + | date | description | facility | reaction | severity | + + + + + + | 2025-01-11 | Azithromycin | [facility] | Moderate | | 00:00 | | [facility] | | | + + + + + + | 2025-02-08 | Azithromycin | [facility] | Moderate | | 00:00 | | [facility] | | | + + + + + + | 2025-01-11 | Ceftriaxone | [facility] | Moderate | | 00:00 | | [facility] | | | + + + + + + | 2025-02-08 | Ceftriaxone | [facility] | Moderate | | 00:00 | | [facility] | | | + + + + + + | 2025-01-11 | Ceftriaxone | [facility] | [facility] | Moderate | | 00:00 | | [facility] | | | + + + + + + | 2025-02-08 | Ceftriaxone | [facility] | Moderate | | 00:00 | [facility] | | | + + + + + + | 2025-01-11 | Morphine | [facility] | Rash | Moderate | | 00:00 | | [facility] | | | + + + + + + | 2025-02-08 | Morphine | [facility] | Rash | Moderate | | 00:00 | | [facility] | | | + + + + + + | 2025-01-11 | Azithromycin | [facility]rt[facility] | Moderate | | 00:00 | | [facility] | | | + + + + + + | 2025-02-08 | Azithromycin | [facility] | Urt[facility]aria | Moderate | | 00:00 | | [facility] | | | + + + + + + | 2025-01-11 | Levofloxacin | [facility] | [facility] | Moderate | | 00:00 | | [facility] | | | + + + + + + | 2025-02-08 | Levofloxacin | [facility] | [facility] | Moderate | | 00:00 | | [facility] | | | + + + + + + | 2025-01-11 | Levofloxacin | [facility] | Moderate | | 00:00 | | [facility] | | | + + + + + + | 2025-02-08 | Levofloxacin | [facility] | Urticaria | Moderate | | 00:00 | | [facility] | | | + + + + + + | 2025-01-11 | Morphine | [facility] - | Rash | Moderate | | 00:00 | | [facility] | | | + + + + + + | 2025-02-08 | Morphine | [facility] - | Rash | Moderate | | 00:00 | | [facility] | | | + + + + + + | 2025-01-11 | Ceftriaxone | [facility] | Urticaria | Moderate | | 00:00 | | [facility] | | | + + + + + + | 2025-02-08 | Ceftriaxone | [facility] | Urticaria | Moderate | | 00:00 | | [facility] | | | + + + + + + | 2025-01-11 | Morphine | [facility] | Rash | Moderate | | 00:00 | | [facility] | | | + + + + + + | 2025-02-08 | Morphine | [facility] | Rash | Moderate | | 00:00 | | [facility] | | | + + + + + + | 2025-01-11 | Levofloxacin | [facility] | Urticaria | Moderate | | 00:00 | | [facility] | | | + + + + + + | 2025-02-08 | Levofloxacin | [facility] | [facility]aria | Moderate | | 00:00 | | [facility] | | | + + + + + + | 2025-01-11 | Penicillin | [facility] | Urticaria | Moderate | | 00:00 | | [facility] | | | + + + + + + | 2025-02-08 | Penicillin | [facility] | Urticaria | Moderate | | 00:00 | | [facility] | | | + + + + + + | 2025-01-11 | Azithromycin | [facility]rt[facility]aria | Moderate | | 00:00 | | [facility] | | | + + + + + + | 2025-02-08 | Azithromycin | [facility] | Moderate | | 00:00 | | [facility] | | | + + + + + + | 2025-02-08 | UNK | [facility] - | Anaphylaxis | Severe | | 00:00 | | [facility] | | | + + + + + + | 2025-01-11 | Penicillin | [facility] | Urticaria | Moderate | | 00:00 | | [facility] | | | + + + + + + | 2025-02-08 | Penicillin | [facility]rt[facility]aria | Moderate | | 00:00 | | [facility] | | | + + + + + + | 2025-01-11 | Penicillin | [facility] | Urticaria | Moderate | | 00:00 | | [facility] | | | + + + + + + | 2025-02-08 | Penicillin | [facility] | Urt[facility]aria | Moderate | | 00:00 | | [facility] | | | + + + + + + Encounters No information. Functional Status No information. Immunizations No information. Medications + + + + | date | description | facility | + + + + | (no date) | ONDANSETRON | [facility] | | | [facility] | + + + + | (no date) | ONDANSETRON | [facility] | | | [facility] | + + + + | (no date) | OXYCODONE HCL | [facility] | | | | [facility] | + + + + | (no date) | OXYCODONE HCL | [facility] | | | | [facility] | + + + + | (no date) | DIPHENHYDRAMINE HCL | [facility] | | | [facility] | + + + + | (no date) | DIPHENHYDRAMINE HCL | [facility] | | | [facility] | + + + + | (no date) | RIVAROXABAN | [facility] | | [facility] | + + + + | (no date) | RIVAROXABAN | [facility] | | | [facility] | + + + + | (no date) | LEVOMILNACIPRAN | [facility] | | | HYDROCHLORIDE | [facility] | + + + + | (no date) | LEVOMILNACIPRAN | [facility] | | | HYDROCHLORIDE | [facility] | + + + + | (no date) | Naloxone HCl | [facility] | | | [facility] | + + + + | (no date) | Naloxone HCl | [facility] | | | [facility] | + + + + | (no date) | CLONAZEPAM | [facility] | | | [facility] | + + + + | (no date) | CLONAZEPAM | [facility] | | | | [facility] | + + + + | (no date) | HYDROXYUREA | [facility] | | | [facility] | + + + + | (no date) | HYDROXYUREA | [facility] | | | | [facility] | + + + + | (no date) | NORTRIPTYLINE HCL | [facility] | | | | [facility] | + + + + | (no date) | NORTRIPTYLINE HCL | [facility] | | | | [facility] | + + + + | (no date) | ACETAMINOPHEN | [facility] | | | | [facility] | + + + + | (no date) | ACETAMINOPHEN | [facility] | | | | [facility] | + + + + | (no date) | FOLIC ACID | [facility] | | | | [facility] | + + + + | (no date) | FOLIC ACID | [facility] | | | [facility] | + + + + | (no date) | OMEPRAZOLE | [facility] | | | [facility] | + + + + | (no date) | OMEPRAZOLE | [facility] | | | | [facility] | + + + + | (no date) | CYANOCOBALAMIN (VITAMIN | [facility] | | | B-12) | [facility] | + + + + | (no date) | CYANOCOBALAMIN (VITAMIN | [facility] | | | B-12) | [facility] | + + + + | (no date) | FAMOTIDINE | [facility] | | [facility] | + + + + | (no date) | FAMOTIDINE | [facility] | | | [facility] | + + + + | (no date) | GABAPENTIN | [facility] | | | [facility] | + + + + | (no date) | GABAPENTIN | [facility] | | | [facility] | + + + + | (no date) | SENNOSIDES | [facility] | | | [facility] | + + + + | (no date) | SENNOSIDES | [facility] | | | [facility] | + + + + | (no date) | HYDROMORPHONE HCL | [facility] | | | | [facility] | + + + + | (no date) | HYDROMORPHONE HCL | [facility] | | | | [facility] | + + + + | (no date) | HYDROMORPHONE HCL | [facility] | | | | [facility] | + + + + | (no date) | HYDROMORPHONE HCL | [facility] | | | | [facility] | + + + + Problems + + + + | date | description | facility | + + + + | 2025-03-21 16:47:49 | Sickle Cell Pain Crisis | [facility] | + + + + | 2025-03-21 18:47:59 | Hb-SS disease with crisis, | [facility] | | | unspecified ([facility] V24, | | | | [facility] V28) | | + + + + Procedures No information. Results/Labs +--------+--------+ +---------+--------+---------+ | test | date | facility | value | unit | notes | +--------+--------+ +---------+--------+---------+ + + | Result panel 1 | + + + + + +------+ + + | Neuts Seg | 2025-01-11 | | 69 | (missing) | (missing) | | NFr Bld | 16:18:07 | [facility] | | | | [facility] | | | | + + + +------+ + + + + | Result panel 2 | + + + + + +------+ + + | Lymphocytes | 2025-01-11 | | 23 | (missing) | (missing) | | NFr Bld | 16:18:07 | [facility] | | | | | Manual [facility] | | | | + + + +------+ + + + + | Result panel 3 | + + + + + +-----+ + + | Monocytes | 2025-01-11 | | 6 | (missing) | (missing) | | NFr Bld | 16:18:07 | [facility] | | | | | Manual [facility] | | | | + + + +-----+ + + + + | Result panel 4 | + + + + + +-----+ + + | Neuts Band | 2025-01-11 | | 2 | (missing) | (missing) | | NFr Bld | 16:18:07 | [facility] | | | | | [facility] | | | | + + + +-----+ + + + + | Result panel 5 | + + + + + +-------+---------+ + | Glucose | 2025-01-11 | | 108 | mg/dL | (missing) | | Lulú | 16:18:07 | [facility] | | | | + + + +-------+---------+ + + + | Result panel 6 | + + + + + +------+---------+ + | BUN | 2025-01-11 | | 10 | mg/dL | (missing) | | SerPl-Tom | 16:18:07 | [facility] | | | | + + + +------+---------+ + + + | Result panel 7 | + + + + + +--------+---------+ + | Creat | 2025-01-11 | | 1.07 | mg/dL | (missing) | | SerPl-Tom | 16:18:07 | [facility] | | | | + + + +--------+---------+ + + + | Result panel 8 | + + + + + +------+ + + | eGFRcr | 2025-01-11 | | 87 | (missing) | (missing) | | SerPlBld | 16:18:07 | [facility] | | | | | CKD-EPI 2020 | [facility] | | | | + + + +------+ + + + + | Result panel 9 | + + + + + +--------+ + + | BUN/Creat | 2025-01-11 | | 9.34 | (missing) | (missing) | | SerPl | 16:18:07 | [facility] | | | | + + + +--------+ + + + + | Result panel 10 | + + + + + +-------+ + + | Sodium | 2025-01-11 | | 142 | (missing) | (missing) | | SerPl-sCnc | 16:18:07 | [facility] | | | | + + + +-------+ + + + + | Result panel 11 | + + + + + +-------+ + + | Potassium | 2025-01-11 | | 3.4 | (missing) | (missing) | | SerPl-sCnc | 16:18:07 | [facility] | | | | + + + +-------+ + + + + | Result panel 12 | + + + + + +-------+ + + | Chloride | 2025-01-11 | | 108 | (missing) | (missing) | | SerPl-sCnc | 16:18:07 | [facility] | | | | + + + +-------+ + + + + | Result panel 13 | + + + + + +------+ + + | CO2 | 2025-01-11 | | 25 | (missing) | (missing) | | SerPl-sCnc | 16:18:07 | [facility] | | | | + + + +------+ + + + + | Result panel 14 | + + + + + +--------+ + + | Anion Gap | 2025-01-11 | | 12.4 | (missing) | (missing) | | SerPl | 16:18:07 | [facility] | | | | | Calculated.4 | [facility]-sCnc [facility] | | | | + + + +--------+ + + + + | Result panel 15 | + + + + + +-------+---------+ + | Calcium | 2025-01-11 | | 9.5 | mg/dL | (missing) | | SerPl-mCnc | 16:18:07 | [facility] | | | | + + + +-------+---------+ + + + | Result panel 16 | + + + + + +-------+---------+ + | Magnesium | 2025-01-11 | | 2.1 | mg/dL | (missing) | | Noy-Tom | 16:18:07 | [facility] | | | | + + + +-------+---------+ + + + | Result panel 17 | + + + + + +-------+ + + | Prot | 2025-01-11 | | 8.2 | (missing) | (missing) | | SerPl-mCherber | 16:18:07 | [facility] | | | | + + + +-------+ + + + + | Result panel 18 | + + + + + +-------+ + + | Albumin | 2025-01-11 | | 4.6 | (missing) | (missing) | | SerPl-herber | 16:18:07 | [facility] | | | | + + + +-------+ + + + + | Result panel 19 | + + + + + +-------+ + + | Globulin | 2025-01-11 | | 3.6 | (missing) | (missing) | | Ser-mCnc | 16:18:07 | [facility] | | | | + + + +-------+ + + + + | Result panel 20 | + + + + + +--------+ + + | | 2025-01-11 | | 1.28 | (missing) | (missing) | | Albumin/Glob | 16:18:07 | [facility] | | | | | SerPl | [facility] | | | | + + + +--------+ + + + + | Result panel 21 | + + + + + +-------+---------+ + | Bilirub | 2025-01-11 | | 3.0 | mg/dL | (missing) | | SerPl-mCnc | 16:18:07 | [facility] | | | | + + + +-------+---------+ + + + | Result panel 22 | + + + + + +------+ + + | AST | 2025-01-11 | | 14 | (missing) | (missing) | | SerPl-cCnc | 16:18:07 | [facility] | | | | + + + +------+ + + + + | Result panel 23 | + + + + + +------+ + + | ALT | 2025-01-11 | | 27 | (missing) | (missing) | | SerPl-cCnc | 16:18:07 | [facility] | | | | + + + +------+ + + + + | Result panel 24 | + + + + + +-------+ + + | ALP | 2025-01-11 | | 114 | (missing) | (missing) | | SerPl-cCnc | 16:18:07 | [facility] | | | | + + + +-------+ + + + + | Result panel 25 | + + + + + +-----+ + + | Monocytes | 2025-01-11 | | 6 | (missing) | (missing) | | NFr Bld | 16:18:07 | [facility] | | | | | Manual [facility] | | | | + + + +-----+ + + + + | Result panel 26 | + + + + + +-----+ + + | Neuts Band | 2025-01-11 | | 2 | (missing) | (missing) | | NFr Bld | 16:18:07 | [facility] | | | | | [facility] | | | | + + + +-----+ + + + + | Result panel 27 | + + + + + +-------+---------+ + | Magnesium | 2025-01-11 | | 2.1 | mg/dL | (missing) | | SerPl-mCnc | 16:18:07 | [facility] | | | | + + + +-------+---------+ + + + | Result panel 28 | + + + + + +--------+ + + | WBC # Bld | 2025-01-11 | | 9.28 | (missing) | (missing) | | Auto | 16:18:07 | [facility] | | | | + + + +--------+ + + + + | Result panel 29 | + + + + + +--------+ + + | RBC # Bld | 2025-01-11 | | 2.28 | (missing) | (missing) | | Auto | 16:18:07 | [facility] | | | | + + + +--------+ + + + + | Result panel 30 | + + + + + +-------+ + + | Hgb | 2025-01-11 | | 8.9 | (missing) | (missing) | | Bld-mCnc | 16:18:07 | [facility] | | | | + + + +-------+ + + + + | Result panel 31 | + + + + + +--------+ + + | Hct VFr.DF | 2025-01-11 | | 25.3 | (missing) | (missing) | | Bld Auto | 16:18:07 | [facility] | | | | + + + +--------+ + + + + | Result panel 32 | + + + + + +---------+ + + | RBC Auto | 2025-01-11 | | 111.0 | (missing) | (missing) | | | 16:18:07 | [facility] | | | | + + + +---------+ + + + + | Result panel 33 | + + + + + +--------+ + + | MCH RBC Qn | 2025-01-11 | | 39.0 | (missing) | (missing) | | Auto | 16:18:07 | [facility] | | | | + + + +--------+ + + + + | Result panel 34 | + + + + + +--------+ + + | MCHC RBC | 2025-01-11 | | 35.2 | (missing) | (missing) | | Auto-EntMCnc | 16:18:07 | [facility] | | | | + + + +--------+ + + + + | Result panel 35 | + + + + + +-------+ + + | Platelet # | 2025-01-11 | | [phone] | (missing) | (missing) | | Bld Auto | 16:18:07 | [facility] | | | | + + + +-------+ + + + + | Result panel 36 | + + + + + +---------+ + + | WBC # Bld | 2025-02-08 | | 15.10 | (missing) | (missing) | | Auto | 10:00:07 | [facility] | | | | + + + +---------+ + + + + | Result panel 37 | + + + + + +--------+ + + | RBC # Bld | 2025-02-08 | | 2.47 | (missing) | (missing) | | Auto | 10:00:07 | [facility] | | | | [facility] - [facility] | | [facility] | | | | + + + +--------+ + + + + | Result panel 38 | + + + + + +-------+ + + | Hgb | 2025-02-08 | | 9.0 | (missing) | (missing) | | Bld-mCnc | 10:00:07 | [facility] | | | | + + + +-------+ + + + + | Result panel 39 | + + + + + +--------+ + + | Hct VFr.DF | 2025-02-08 | | 25.7 | (missing) | (missing) | | Bld Auto | 10:00:07 | [facility] | | | | | | | - [facility] | [facility] | | | | + + + +--------+ + + + + | Result panel 40 | + + + + + +---------+ + + | RBC Auto | 2025-02-08 | | 104.0 | (missing) | (missing) | | | 10:00:07 | [facility] | | | | + + + +---------+ + + + + | Result panel 41 | + + + + + +--------+ + + | MCH RBC Qn | 2025-02-08 | | 36.4 | (missing) | (missing) | | Auto | 10:00:07 | [facility] | | | | + + + +--------+ + + + + | Result panel 42 | + + + + + +--------+ + + | MCHC RBC | 2025-02-08 | | 35.0 | (missing) | (missing) | | Auto-EntMCnc | 10:00:07 | [facility] | | | | + + + +--------+ + + + + | Result panel 43 | + + + + + +-------+ + + | Platelet # | 2025-02-08 | | [phone] | (missing) | (missing) | | Bld Auto | 10:00:07 | [facility] | | | | + + + +-------+ + + + + | Result panel 44 | + + + + + +------+ + + | Neuts Seg | 2025-02-08 | | 84 | (missing) | (missing) | | NFr Bld | 10:00:07 | [facility] | | | | | [facility] | | | | + + + +------+ + + + + | Result panel 45 | + + + + + +------+ + + | Lymphocytes | 2025-02-08 | | 16 | (missing) | (missing) | | NFr Bld | 10:00:07 | [facility] | | | [facility] | | | | + + + +------+ + + + + | Result panel 46 | + + + + + +-------+---------+ + | Glucose | 2025-02-08 | | 102 | mg/dL | (missing) | | Noy-Tom | 10:16:07 | [facility] | | | | + + + +-------+---------+ + + + | Result panel 47 | + + + + + +------+---------+ + | BUN | 2025-02-08 | | 10 | mg/dL | (missing) | | Noy-Tom | 10:16:07 | [facility] | | | | + + + +------+---------+ + + + | Result panel 48 | + + + + + +--------+---------+ + | Creat | 2025-02-08 | | 1.09 | mg/dL | (missing) | | SerPl-mCnc | 10:16:07 | [facility] | | | | | | [facility] - [facility] | | | | + + + +--------+---------+ + + + | Result panel 49 | + + + + + +------+ + + | eGFRcr | 2025-02-08 | | 85 | (missing) | (missing) | | SerPlBld | 10:16:07 | [facility] | | | | | CKD-EPI 2020 | [facility] | | | | + + + +------+ + + + + | Result panel 50 | + + + + + +--------+ + + | BUN/Creat | 2025-02-08 | | 9.17 | (missing) | (missing) | | SerPl | 10:16:07 | [facility] | | | | + + + +--------+ + + + + | Result panel 51 | + + + + + +-------+ + + | Sodium | 2025-02-08 | | 141 | (missing) | (missing) | | SerPl-sCnc | 10:16:07 | [facility] | | | | + + + +-------+ + + + + | Result panel 52 | + + + + + +-------+ + + | Potassium | 2025-02-08 | | 3.6 | (missing) | (missing) | | SerPl[facility] | 10:16:07 | [facility] | | | | + + + +-------+ + + + + | Result panel 53 | + + + + + +-------+ + + | Chloride | 2025-02-08 | | 109 | (missing) | (missing) | | [facility] | 10:16:07 | [facility] | | | | + + + +-------+ + + + + | Result panel 54 | + + + + + +------+ + + | CO2 | 2025-02-08 | | 24 | (missing) | (missing) | | [facility] | 10:16:07 | [facility] | | | | + + + +------+ + + + + | Result panel 55 | + + + + + +--------+ + + | Anion Gap | 2025-02-08 | | 11.6 | (missing) | (missing) | | [facility] | 10:16:07 | [facility] | | | | | Calculated.4 [facility] | | | | + + + +--------+ + + + + | Result panel 56 | + + + + + +-------+---------+ + | Calcium | 2025-02-08 | | 9.7 | mg/dL | (missing) | | [facility] | 10:16:07 | [facility] | | | | + + + +-------+---------+ + + + | Result panel 57 | + + + + + +-------+ + + | Prot | 2025-02-08 | | 8.2 | (missing) | (missing) | | [facility] | 10:16:07 | [facility] | | | | + + + +-------+ + + + + | Result panel 58 | + + + + + +-------+ + + | Albumin | 2025-02-08 | | 4.6 | (missing) | (missing) | | [facility] | 10:16:07 | [facility] | | | | + + + +-------+ + + + + | Result panel 59 | + + + + + +-------+ + + | Globulin | 2025-02-08 | | 3.6 | (missing) | (missing) | | [facility] | 10:16:07 | [facility] | | | | + + + +-------+ + + + + | Result panel 60 | + + + + + +--------+ + + | | 2025-02-08 | | 1.28 | (missing) | (missing) | | Albumin/Glob | 10:16:07 | [facility] | | | | | | | [facility] | | | | + + + +--------+ + + + + | Result panel 61 | + + + + + +-------+---------+ + | Bilirub | 2025-02-08 | | 3.5 | mg/dL | (missing) | | [facility] | 10:16:07 | [facility] | | | | + + + +-------+---------+ + + + | Result panel 62 | + + + + + +------+ + + | AST | 2025-02-08 | | 11 | (missing) | (missing) | | SerPl-c[facility]nc | 10:16:07 | [facility] | | | | + + + +------+ + + + + | Result panel 63 | + + + + + +------+ + + | ALT | 2025-02-08 | | 15 | (missing) | (missing) | | SerPl-cCnc | 10:16:07 | [facility] | | | | + + + +------+ + + + + | Result panel 64 | + + + + + +-------+ + + | ALP | 2025-02-08 | | 103 | (missing) | (missing) | | SerPl-cCnc | 10:16:07 | [facility] | | | | + + + +-------+ + + + + | Result panel 65 | + + + + + +------+ + + | Lipase | 2025-02-08 | | 22 | (missing) | (missing) | | SerPl-cCnc | 10:16:07 | [facility] | | | | + + + +------+ + + + + | Result panel 66 | + + + + + + + + + | Color Ur | 2025-02-08 | | YELLOW | (missing) | (missing) | | Auto | 11:13:07 | [facility] | | | | + + + + + + + + + | Result panel 67 | + + + + + +---------+ + + | Character | 2025-02-08 | | CLEAR | (missing) | (missing) | | Ur | 11:13:07 | [facility] | | | | + + + +---------+ + + + + | Result panel 68 | + + + + + + + + + | Glucose Ur | 2025-02-08 | | NEGATIVE | (missing) | (missing) | | Ql Strip | 11:13:07 | [facility] | | | | + + + + + + + + + | Result panel 69 | + + + + + + + + + | Bilirub Ur | 2025-02-08 | | NEGATIVE | (missing) | (missing) | | Ql Strip | 11:13:07 | [facility] | | | | + + + + + + + + + | Result panel 70 | + + + + + + + + + | [place] Ur | 2025-02-08 | | NEGATIVE | (missing) | (missing) | | Ql Strip | 11:13:07 | [facility] | | | | + + + + + + + + + | Result panel 71 | + + + + + +---------+ + + | Sp Gr Ur | 2025-02-08 | | 1.015 | (missing) | (missing) | | Strip | 11:13:07 | [facility] | | | | + + + +---------+ + + + + | Result panel 72 | + + + + + + + + + | Hgb Ur Ql | 2025-02-08 | | NEGATIVE | (missing) | (missing) | | Strip | 11:13:07 | [facility] | | | | + + + + + + + + + | Result panel 73 | + + + + + +-------+ + + | pH Ur Strip | 2025-02-08 | | 7.0 | (missing) | (missing) | | | 11:13:07 | [facility] | | | | + + + +-------+ + + + + | Result panel 74 | + + + + + + + + + | Prot Ur | 2025-02-08 | | NEGATIVE | (missing) | (missing) | | Strip-mCnc | 11:13:07 | [facility] | | | | + + + + + + + + + | Result panel 75 | + + + + + +-------+ + + | | 2025-02-08 | | 4.0 | (missing) | (missing) | | Urobilinogen | 11:13:07 | [facility] | | | | | Ur [facility] | | | | + + + +-------+ + + + + | Result panel 76 | + + + + + + + + + | Nitrite Ur | 2025-02-08 | | NEGATIVE | (missing) | (missing) | | Ql Strip | 11:13:07 | [facility] | | | | + + + + + + + + + | Result panel 77 | + + + + + + + + + | Leukocyte | 2025-02-08 | | NEGATIVE | (missing) | (missing) | | esterase Ur | 11:13:07 | [facility] | | | | | Ql Strip [facility] | | | | + + + + + + + + + | Result panel 78 | + + + + + + + + + | Color Ur | 2025-02-08 | | YELLOW | (missing) | (missing) | | Auto | 11:13:07 | [facility] | | | | + + + + + + + + + | Result panel 79 | + + + + + +---------+ + + | Character | 2025-02-08 | | CLEAR | (missing) | (missing) | | Ur | 11:13:07 | [facility] | | | | + + + +---------+ + + + + | Result panel 80 | + + + + + + + + + | Glucose Ur | 2025-02-08 | | NEGATIVE | (missing) | (missing) | | Ql Strip | 11:13:07 | [facility] | | | | + + + + + + + + + | Result panel 81 | + + + + + + + + + | Eliseo Zaragoza | 2025-02-08 | | NEGATIVE | (missing) | (missing) | | Ql Strip | 11:13:07 | [facility] | | | | + + + + + + + + + | Result panel 82 | + + + + + + + + + | Ketones Ur | 2025-02-08 | | NEGATIVE | (missing) | (missing) | | Ql Strip | 11:13:07 | [facility] | | | | + + + + + + + + + | Result panel 83 | + + + + + +---------+ + + | Sp Gr Ur | 2025-02-08 | | 1.015 | (missing) | (missing) | | Strip | 11:13:07 | [facility] | | | | + + + +---------+ + + + + | Result panel 84 | + + + + + + + + + | Hgb Ur Ql | 2025-02-08 | | NEGATIVE | (missing) | (missing) | | Strip | 11:13:07 | [facility] | | | | + + + + + + + + + | Result panel 85 | + + + + + +-------+ + + | pH Ur Strip | 2025-02-08 | | 7.0 | (missing) | (missing) | | | 11:13:07 | [facility] | | | | + + + +-------+ + + + + | Result panel 86 | + + + + + + + + + | Prot Ur | 2025-02-08 | | NEGATIVE | (missing) | (missing) | | Strip-mCnc | 11:13:07 | [facility] | | | | + + + + + + + + + | Result panel 87 | + + + + + +-------+ + + | | 2025-02-08 | | 4.0 | (missing) | (missing) | | Urobilinogen | 11:13:07 | [facility] | | | | | Ur | [facility] | | | | + + + +-------+ + + + + | Result panel 88 | + + + + + + + + + | Nitrite Ur | 2025-02-08 | | NEGATIVE | (missing) | (missing) | | Ql Strip | 11:13:07 | [facility] | | | | + + + + + + + + + | Result panel 89 | + + + + + + + + + | Leukocyte | 2025-02-08 | | NEGATIVE | (missing) | (missing) | | esterase Ur | 11:13:07 | [facility] | | | | | Ql Strip [facility] | | | | + + + + + + + + + | Result panel 90 | + + + + + +---------+ + + | WBC # Bld | 2025-02-22 | | 17.10 | (missing) | (missing) | | Auto | 10:15:07 | [facility] | | | | + + + +---------+ + + + + | Result panel 91 | + + + + + +------+ + + | Lymphocytes | 2025-02-22 | | 22 | (missing) | (missing) | | NFr Bld | 10:15:07 | [facility] | | | | | Manual [facility] | | | | + + + +------+ + + + + | Result panel 92 | + + + + + +-----+ + + | Monocytes | 2025-02-22 | | 6 | (missing) | (missing) | | NFr Bld | 10:15:07 | [facility] | | | | | [facility] | | | | + + + +-----+ + + + + | Result panel 93 | + + + + + +-----+ + + | Eosinophil | 2025-02-22 | | 1 | (missing) | (missing) | | NFr Bld | 10:15:07 | [facility] | | | | | [facility] | | | | + + + +-----+ + + + + | Result panel 94 | + + + + + +-----+ + + | Basophils | 2025-02-22 | | 1 | (missing) | (missing) | | NFr Bld | 10:15:07 | [facility] | | | | | Manual [facility] | | | | + + + +-----+ + + + + | Result panel 95 | + + + + + +--------+ + + | Retics/RBC | 2025-02-22 | | 7.40 | (missing) | (missing) | | NFr Auto | 10:15:07 | [facility] | | | | + + + +--------+ + + + + | Result panel 96 | + + + + + +-------+---------+ + | Glucose | 2025-02-22 | | 104 | mg/dL | (missing) | | [facility]oy-Tom | 10:15:07 | [facility] | | | | + + + +-------+---------+ + + + | Result panel 97 | + + + + + +------+---------+ + | BUN | 2025-02-22 | | 12 | mg/dL | (missing) | | Lulú | 10:15:07 | [facility] | | | | + + + +------+---------+ + + + | Result panel 98 | + + + + + +--------+---------+ + | Creat | 2025-02-22 | | 1.27 | mg/dL | (missing) | | SerPl-mCnc | 10:15:07 | [facility] | | | | | | | - [facility] | [facility] | | | | + + + +--------+---------+ + + + | Result panel 99 | + + + + + +------+ + + | eGFRcr | 2025-02-22 | | 71 | (missing) | (missing) | | SerPlBld | 10:15:07 | [facility] | | | | | CKD-EPI 2020 | [facility] | | | | + + + +------+ + + + + | Result panel 100 | + + + + + +--------+ + + | BUN/Creat | 2025-02-22 | | 9.44 | (missing) | (missing) | | SerPl | 10:15:07 | [facility] | | | | + + + +--------+ + + + + | Result panel 101 | + + + + + +--------+ + + | RBC # Bld | 2025-02-22 | | 2.57 | (missing) | (missing) | | Auto | 10:15:07 | [facility] | | | | + + + +--------+ + + + + | Result panel 102 | + + + + + +-------+ + + | Sodium | 2025-02-22 | | 143 | (missing) | (missing) | | Ser[facility] | 10:15:07 | [facility] | | | | + + + +-------+ + + + + | Result panel 103 | + + + + + +-------+ + + | Potassium | 2025-02-22 | | 3.5 | (missing) | (missing) | | SerPl-sCnc | 10:15:07 | [facility] | | | | + + + +-------+ + + + + | Result panel 104 | + + + + + +-------+ + + | Chloride | 2025-02-22 | | 108 | (missing) | (missing) | | SerPl-sCnc | 10:15:07 | [facility] | | | | + + + +-------+ + + + + | Result panel 105 | + + + + + +------+ + + | CO2 | 2025-02-22 | | 23 | (missing) | (missing) | | SerPl-sCnc | 10:15:07 | [facility] | | | | + + + +------+ + + + + | Result panel 106 | + + + + + +--------+ + + | Anion Gap | 2025-02-22 | | 15.5 | (missing) | (missing) | | SerPl | 10:15:07 | [facility] | | | | | Calculated.4 | [facility] | | | | + + + +--------+ + + + + | Result panel 107 | + + + + + +--------+---------+ + | Calcium | 2025-02-22 | | 10.0 | mg/dL | (missing) | | SerPl-mCherber | 10:15:07 | [facility] | | | | + + + +--------+---------+ + + + | Result panel 108 | + + + + + +-------+ + + | Prot | 2025-02-22 | | 8.8 | (missing) | (missing) | | SerPl-mCnc | 10:15:07 | [facility] | | | | + + + +-------+ + + + + | Result panel 109 | + + + + + +-------+ + + | Albumin | 2025-02-22 | | 4.8 | (missing) | (missing) | | SerPl-Tom | 10:15:07 | [facility] | | | | + + + +-------+ + + + + | Result panel 110 | + + + + + +-------+ + + | Globulin | 2025-02-22 | | 4.0 | (missing) | (missing) | | Ser-mCnc | 10:15:07 | [facility] | | | | + + + +-------+ + + + + | Result panel 111 | + + + + + +--------+ + + | | 2025-02-22 | | 1.20 | (missing) | (missing) | | Albumin/Glob | 10:15:07 | [facility] | | | | | SerPl | [facility] | | | | + + + +--------+ + + + + | Result panel 112 | + + + + + +-------+ + + | Hgb | 2025-02-22 | | 9.6 | (missing) | (missing) | | Bld-mCnc | 10:15:07 | [facility] | | | | | | | - | | | | | | | [facility] | | | | + + + +-------+ + + + + | Result panel 113 | + + + + + +-------+---------+ + | Bilirub | 2025-02-22 | | 3.9 | mg/dL | (missing) | | SerPl-mCnc | 10:15:07 | [facility] | | | | + + + +-------+---------+ + + + | Result panel 114 | + + + + + +------+ + + | AST | 2025-02-22 | | 11 | (missing) | (missing) | | SerPl-cCnc | 10:15:07 | [facility] | | | | + + + +------+ + + + + | Result panel 115 | + + + + + +------+ + + | ALT | 2025-02-22 | | 19 | (missing) | (missing) | | SerPl-cCnc | 10:15:07 | [facility] | | | | + + + +------+ + + + + | Result panel 116 | + + + + + +-------+ + + | ALP | 2025-02-22 | | 111 | (missing) | (missing) | | SerPl-cCnc | 10:15:07 | [facility] | | | | + + + +-------+ + + + + | Result panel 117 | + + + + + +------+ + + | Lipase | 2025-02-22 | | 31 | (missing) | (missing) | | SerPl-cCnc | 10:15:07 | [facility] | | | | + + + +------+ + + + + | Result panel 118 | + + + + + +--------+ + + | Hct VFr.DF | 2025-02-22 | | 26.7 | (missing) | (missing) | | Bld Auto | 10:15:07 | [facility] | | | | + + + +--------+ + + + + | Result panel 119 | + + + + + +---------+ + + | RBC Auto | 2025-02-22 | | 103.9 | (missing) | (missing) | | | 10:15:07 | [facility] | | | | + + + +---------+ + + + + | Result panel 120 | + + + + + +--------+ + + | MCH RBC Qn | 2025-02-22 | | 37.4 | (missing) | (missing) | | Auto | 10:15:07 | [facility] | | | | + + + +--------+ + + + + | Result panel 121 | + + + + + +--------+ + + | MCHC RBC | 2025-02-22 | | 36.0 | (missing) | (missing) | | Auto-EntMCnc | 10:15:07 | [facility] | | | | + + + +--------+ + + + + | Result panel 122 | + + + + + +-------+ + + | Platelet # | 2025-02-22 | | 462 | (missing) | (missing) | | Bld Auto | 10:15:07 | [facility] | | | | + + + +-------+ + + + + | Result panel 123 | + + + + + +------+ + + | Neuts Seg | 2025-02-22 | | 70 | (missing) | (missing) | | NFr Bld | 10:15:07 | [facility] | | | | | Manual [facility] | | | | + + + +------+ + + Social History +--------+ + + | date | description | facility | +--------+ + + Vital Signs + + + +---------+ | date | measurement | value | units | + + + +---------+ | 2025-01-11 00:00 | BMI | 22.1 | kg/m2 | + + + +---------+ | 2025-01-11 00:00 | BP_diastolic | 70 | mmHg | + + + +---------+ | 2025-01-11 00:00 | BP_systolic | 108 | mmHg | + + + +---------+ | 2025-01-11 00:00 | heart_rate | 66 | /min | + + + +---------+ | 2025-01-11 00:00 | height_metric | 185.42 | cm | + + + +---------+ | 2025-01-11 00:00 | height_standard | 73 | in | + + + +---------+ | 2025-01-11 00:00 | o2_saturation | 97 | % | + + + +---------+ | 2025-01-11 00:00 | respiration_rate | 18 | /min | + + + +---------+ | 2025-01-11 00:00 | | 97.9 | F | | | temperature_standar | | | | | d | | | + + + +---------+ | 2025-01-11 00:00 | weight_metric | 75.999 | kg | + + + +---------+ | 2025-01-11 00:00 | weight_standard | 167.550 | lb | + + + +---------+ | 2025-02-08 00:00 | BMI | 22.4 | kg/m2 | + + + +---------+ | 2025-02-08 00:00 | BP_diastolic | 66 | mmHg | + + + +---------+ | 2025-02-08 00:00 | BP_systolic | 127 | mmHg | + + + +---------+ | 2025-02-08 00:00 | heart_rate | 62 | /min | + + + +---------+ | 2025-02-08 00:00 | height_metric | 185.42 | cm | + + + +---------+ | 2025-02-08 00:00 | height_standard | 73 | in | + + + +---------+ | 2025-02-08 00:00 | o2_saturation | 99 | % | + + + +---------+ | 2025-02-08 00:00 | respiration_rate | 16 | /min | + + + +---------+ | 2025-02-08 00:00 | | 97.7 | F | | | temperature_standar | | | | | d | | | + + + +---------+ | 2025-02-08 00:00 | weight_metric | 76.901 | kg | + + + +---------+ | 2025-02-08 00:00 | weight_standard | 169.537 | lb | + + + +---------+ | 2025-02-22 00:00 | BMI | 21.8 | kg/m2 | + + + +---------+ | 2025-02-22 00:00 | BP_diastolic | 81 | mmHg | + + + +---------+ | 2025-02-22 00:00 | BP_systolic | 124 | mmHg | + + + +---------+ | 2025-02-22 00:00 | heart_rate | 73 | /min | + + + +---------+ | 2025-02-22 00:00 | height_metric | 185.42 | cm | + + + +---------+ | 2025-02-22 00:00 | height_standard | 73 | in | + + + +---------+ | 2025-02-22 00:00 | o2_saturation | 100 | % | + + + +---------+ | 2025-02-22 00:00 | respiration_rate | 16 | /min | + + + +---------+ | 2025-02-22 00:00 | | 98.5 | F | | | temperature_standar | | | | | d | | | + + + +---------+ | 2025-02-22 00:00 | weight_metric | 75.101 | kg | + + + +---------+ | 2025-02-22 00:00 | weight_standard | 165.568 | lb | + + + +---------+"
[2025-04-05] MEDS ORDERED: ALTEPLASE 2 MG/2 ML VIAL IV SCH (19:45)
[2025-04-05 20:03] LABS: BASOPHILS 0.7 % (0.2-1.2); EOSINOPHILS 0.8 % (0.8-7.0); LYMPHOCYTES 21.9 % (21.8-53.1); MCH 33.5 PG (25.7-32.2); MCHC 32.1 g/dL (32.3-36.5); MCV 104.3 fL (79.0-92.2); MONOCYTES 6.5 % (5.3-12.2); NEUTROPHILS 69.2 % (34.0-67.9); RBC 2.30 M/uL (4.63-6.08)
[2025-04-05 20:16] LABS: SMEAR REVIEW BLOOD SEE COMMENTS
[2025-04-05 20:18] LABS: ALT (SGPT) 18.0 U/L (14-59); AST (SGOT) 10.0 U/L (15-37); GLOMERULAR FILTRATION RATE,EST 103.0 mL/min (>60); PROTEIN, TOTAL 7.2 g/dL (6.4-8.2); UREA NITROGEN 9.0 mg/dL (7-18)
[2025-04-06 00:06] VITALS: BP 156/93
== END 2025-04-05 23:58 | disposition home or self-care (01) ==
LOC: ED 17:20
PROVIDERS: Emergency Medicine
DX: D57.1 Sickle-cell disease without crisis (principal); F17.200 Nicotine dependence, unspecified, uncomplicated; Z91.013 Allergy to seafood; Z88.0 Allergy status to penicillin; Z88.1 Allergy status to other antibiotic agents; Z88.5 Allergy status to narcotic agent
CPT/HCPCS: 36415; 80053; 83690; 85025; 85060; 96374; 96375; 96376; 99284-25; J1171; J2405; J2997

== ENCOUNTER 2025-05-29 16:35 | Emergency (ER) | payer MEDICARE, OTHER ==
[~2025-05-29] VITALS: Ht 185.4 cm; Wt 79.3 kg
--- OUTSIDE RECORDS SUMMARY | ~2025-05-29 | XMS | Continuity of Care Document ---
Demographics + + + | Address | [address] | | | [place] [address] | + + + | Preferred Language | Unknown | + + + | Marital Status | Never | + + + | Jehovah'S Witness Affiliation | Unknown | + + + | Race | Unknown | + + + | Ethnic Group | Not or | + + + Author + + + | Author | [facility] | + + + | Organization | [facility] | + + + | Address | [address] | | | [place] [address] | + + + | Phone | | + + + Care Team Providers + + + + | Care Pole Inspector Name | Role | Phone | + [...] + + + + + + | 2025-04-05 | Azithromycin | [facility] | Urticaria | Moderate | | 00:00 | | [facility] | | | + + + + + + | 2025-05-17 | Azithromycin | [facility] | Urticaria | Moderate | | 00:00 | | [facility] | | | + + + + + + | 2025-04-05 | Ceftriaxone | [facility] | Urticaria | Moderate | | 00:00 | | [facility] | | | + + + + + + | 2025-05-17 | Ceftriaxone | [facility] | Moderate | | 00:00 | [facility] | | | + + + + + + | 2025-04-05 | Ceftriaxone | [facility] | Urticaria | Moderate | | 00:00 | | [facility] | | | + + + + + + | 2025-05-17 | Ceftriaxone | [facility] | Urticaria | Moderate | | 00:00 | | [facility] | | | + + + + + + | 2025-04-05 | Morphine | [facility] | Rash | Moderate | | 00:00 | [facility] | | | + + + + + + | 2025-05-17 | Morphine | [facility] | Rash | Moderate | | 00:00 | | [facility] | | | + + + + + + | 2025-04-05 | Azithromycin | [facility] | Urticaria | Moderate | | 00:00 | | [facility] | | | + + + + + + | 2025-05-17 | Azithromycin | [facility] | Urticaria | Moderate | | 00:00 | | [facility] | | | + + + + + + | 2025-04-05 | Levofloxacin | [facility] | Urticaria | Moderate | | 00:00 | | [facility] | | | + + + + + + | 2025-05-17 | Levofloxacin | [facility] | Urticaria | Moderate | | 00:00 | | [facility] | | | + + + + + + | 2025-04-05 | Levofloxacin | [facility] | Urticaria | Moderate | | 00:00 | | [facility] | | | + + + + + + | 2025-05-17 | Levofloxacin | [facility] | Urticaria | Moderate | | 00:00 | | [facility] | | | + + + + + + | 2025-04-05 | Morphine | [facility] - | Rash | Moderate | | 00:00 | | [facility] | | | + + + + + + | 2025-05-17 | Morphine | [facility] - | Rash | Moderate | | 00:00 | | [facility] | | | + + + + + + | 2025-04-05 | Ceftriaxone | [facility] | Urticaria | Moderate | | 00:00 | | [facility] | | | + + + + + + | 2025-05-17 | Ceftriaxone | [facility] | Urticaria | Moderate | | 00:00 | | [facility] | | | + + + + + + | 2025-04-05 | Morphine | [facility] - | Rash | Moderate | | 00:00 | | [facility] | | | + + + + + + | 2025-05-17 | Morphine | [facility] | Rash | Moderate | | 00:00 | | [facility] | | | + + + + + + | 2025-04-05 | Levofloxacin | [facility] | Urticaria | Moderate | | 00:00 | | [facility] | | | + + + + + + | 2025-05-17 | Levofloxacin | [facility] | Urticaria | Moderate | | 00:00 | | [facility] | | | + + + + + + | 2025-04-05 | Penicillin | [facility] | Urticaria | Moderate | | 00:00 | | [facility] | | | + + + + + + | 2025-05-17 | Penicillin | [facility] | Urticaria | Moderate | | 00:00 | | [facility] | | | + + + + + + | 2016-01-28 | | [facility] | Hives | (no severity) | | 10:00 | [id number]^HYDROMOR | | | | | | PHONE | | | | | | (FRANCISCO)^DUSTIN_ | | | | | | SANDRA-Sheyla | | | | + + + + + + | 2023-12-27 | | [facility] | Anaphylaxis | (no severity) | | 10:00 | [id number]^SHELLFISH | | | | | | | | | | | | DERIVED^HIC_SAH | | | | | | S-Epic | | | | + + + + + + | 2008-12-19 | | [facility] | Hives~Itching | (no severity) | | 10:00 | 1545^MORPHINE^H | | | | | | IC_SAHS-Epic | | | | + + + + + + | 2024-05-01 | | [facility] | Rash | (no severity) | | 10:00 | [id number]^CIPROFLOXA | | | | | | EPHRAIM^HIC_SAHS-Ep | | | | | | ic | | | | + + + + + + | 2016-07-14 | | [facility] | Hives~Rash | (no severity) | | 10:00 | 3635^AZITHROMYC | | | | | | IN^SAVI_SAHS-Epi | | | | | | c | | | | + + + + + + | 2016-02-06 | | [facility] | Rash | (no severity) | | 10:00 | 4622^HYDROMORPH | | | | | | ONE^SAVI_SAHS-Ep | | | | | | ic | | | | + + + + + + | 2014-08-03 | | [facility] | | (no severity) | | 10:00 | 476^PENICILLINS | | Anaphylaxis~Hiv | | | | ^DAM_SEBASTIANS-Epic | | es~Other | | + + + + + + | 2016-07-14 | | [facility] | Hives~Rash | (no severity) | | 10:00 | 4849^CEFTRIAXON | | | | | | E^SAVI_SAHS-Epic | | | | | | | | | | + + + + + + | 2019-11-25 | | [facility] | Hives | (no severity) | | 10:00 | 4977^PENICILLIN | | | | | | | | | | | | G^RIVERA-Epic | | | | | | | | | | + + + + + + | 2017-07-30 | | [facility] | Hives~Other | (no severity) | | 10:00 | 6299^LEVOFLOXAC | | | | | | IN^RIVERA-Epi | | | | | | c | | | | + + + + + + | 2023-12-27 | 6949^RED BLOOD | [facility] | Other | (no severity) | | 10:00 | | | | | | | CELLS^RIVERA- | | | | | | Epic | | | | + + + + + + | 2016-02-29 | [id number]^FISH | [facility] | Hives | (no severity) | | 10:00 | CONTAINING | | | | | | PRODUCTS^DAM_SA | | | | | | HS-Epic | | | | + + + + + + | 2023-12-27 | 9278^FISH | [facility] | Hives~Swelling | (no severity) | | 10:00 | DERIVED^HIC_SAH | | | | | | S-Epic | | | | + + + + + + | 2025-04-05 | Azithromycin | [facility] | Urticaria | Moderate | | 00:00 | | [facility] | | | + + + + + + | 2025-05-17 | Azithromycin | [facility] | Urticaria | Moderate | | 00:00 | | [facility] | | | + + + + + + | 2025-04-05 | UNK | [facility] - | Anaphylaxis | Severe | | 00:00 | | [facility] | | | + + + + + + | 2025-05-17 | UNK | [facility] | Anaphylaxis | Severe | | 00:00 | | [facility] | | | + + + + + + | 2025-04-05 | Penicillin | [facility] | Urticaria | Moderate | | 00:00 | | [facility] | | | + + + + + + | 2025-05-17 | Penicillin | [facility] | Urticaria | Moderate | | 00:00 | | [facility] | | | + + + + + + | 2025-04-05 | Penicillin | [facility] | Urticaria | Moderate | | 00:00 | | [facility] | | | + + + + + + | 2025-05-17 | Penicillin | [facility] | Urticaria [...] + | (no date) | ONDANSETRON | [facility] | | | | [facility] | + + + + | (no date) | ONDANSETRON | [facility] | | | | [facility] | + + + + | (no date) | ONDANSETRON | [facility] | | | | [facility] | + + + + | (no date) | OXYCODONE HCL | [facility] | | | | [facility] | + + + + | (no date) | OXYCODONE HCL | [facility] | | | | [facility] | + + + + | (no date) | OXYCODONE HCL | [facility] | | | | [facility] | + + + + | (no date) | DIPHENHYDRAMINE HCL | [facility] | | | | [facility] | + + + + | (no date) | DIPHENHYDRAMINE HCL | [facility] | | | | [facility] | + + + + | (no date) | DIPHENHYDRAMINE HCL | [facility] | | | | [facility] | + + + + | (no date) | RIVAROXABAN | [facility] | | | | [facility] | + + + + | (no date) | RIVAROXABAN | [facility] | | | | [facility] | + + + + | (no date) | RIVAROXABAN | [facility] | | | | [facility] | + + + + | (no date) | LEVOMILNACIPRAN | [facility] | | | HYDROCHLORIDE | [facility] | + + + + | (no date) | LEVOMILNACIPRAN | [facility] | | | HYDROCHLORIDE | [facility] | + + + + | (no date) | LEVOMILNACIPRAN | [facility] | | | HYDROCHLORIDE | [facility] | + + + + | (no date) | CEFAZOLIN SODIUM | [facility] | | | | [facility] | + + + + | (no date) | Naloxone HCl | [facility] | | | | [facility] | + + + + | (no date) | Naloxone HCl | [facility] | | | | [facility] | + + + + | (no date) | Naloxone HCl | [facility] | | | | [facility] | + + + + | (no date) | CLONAZEPAM | [facility] | | | | [facility] | + + + + | (no date) | CLONAZEPAM | [facility] | | | | [facility] | + + + + | (no date) | CLONAZEPAM | [facility] | | | | [facility] | + + + + | (no date) | HYDROXYUREA | [facility] | | | | [facility] | + + + + | (no date) | HYDROXYUREA | [facility] | | | | [facility] | + + + + | (no date) | HYDROXYUREA | [facility] | | | | [facility] | + + + + | (no date) | NORTRIPTYLINE HCL | [facility] | | | | [facility] | + + + + | (no date) | NORTRIPTYLINE HCL | [facility] | | | | [facility] | + + + + | (no date) | NORTRIPTYLINE HCL | [facility] | | | | [facility] | + + + + | (no date) | ACETAMINOPHEN | [facility] | | | | [facility] | + + + + | (no date) | ACETAMINOPHEN | [facility] | | | | [facility] | + + + + | (no date) | ACETAMINOPHEN | [facility] | | | | [facility] | + + + + | (no date) | FOLIC ACID | [facility] | | | | [facility] | + + + + | (no date) | FOLIC ACID | [facility] | | | | [facility] | + + + + | (no date) | FOLIC ACID | [facility] | | | | [facility] | + + + + | (no date) | OMEPRAZOLE | [facility] | | | | [facility] | + + + + | (no date) | OMEPRAZOLE | [facility] | | | | [facility] | + + + + | (no date) | OMEPRAZOLE | [facility] | | | | [facility] | + + + + | (no date) | CYANOCOBALAMIN (VITAMIN | [facility] | | | B-12) | [facility] | + + + + | (no date) | CYANOCOBALAMIN (VITAMIN | [facility] | | | B-12) | [facility] | + + + + | (no date) | CYANOCOBALAMIN (VITAMIN | [facility] | | | B-12) | [facility] | + + + + | (no date) | FAMOTIDINE | [facility] | | | | [facility] | + + + + | (no date) | FAMOTIDINE | [facility] | | | | [facility] | + + + + | (no date) | FAMOTIDINE | [facility] | | | | [facility] | + + + + | (no date) | GABAPENTIN | [facility] | | | | [facility] | + + + + | (no date) | GABAPENTIN | [facility] | | | | [facility] | + + + + | (no date) | GABAPENTIN | [facility] | | | | [facility] | + + + + | (no date) | SENNOSIDES | [facility] | | | | [facility] | + + + + | (no date) | SENNOSIDES | [facility] | | | | [facility] | + + + + | (no date) | SENNOSIDES | [facility] | | | | [facility] | + + + + | (no date) | HYDROMORPHONE HCL | [facility] | | | | [facility] | + + + + | (no date) | HYDROMORPHONE HCL | [facility] | | | | [facility] | + + + + | (no date) | HYDROMORPHONE HCL | [facility] | | | | [facility] | + + + + | (no date) | HYDROMORPHONE HCL | [facility] | | | | [facility] | + + + + | (no date) | HYDROMORPHONE HCL | [facility] | | | | [facility] | + + + + | (no date) | HYDROMORPHONE HCL | [facility] | | | | [facility] | + + + + Problems + + + + | date | description | facility | + + + + | 2025-03-21 16:47:49 | [facility] | [facility] | + + + + | 2025-03-21 18:47:59 | Hb-SS disease with crisis, | [facility] | | | unspecified (CMS/HCC V24, | | | | CMS/HCC V28) | | + + + + | 2025-04-07 21:52:04 | Sepsis, unspecified | [facility] | | | organism (CMS/HCC V24, | | | | CMS/HCC V28) | | + + + + | 2025-04-18 15:16:03 | Sepsis, unspecified | [facility] | | | organism (CMS/HCC V24, | | | | CMS/HCC V28) | | + + + + | 2025-04-18 15:16:03 | Other staphylococcus as | [facility] | | | the cause of diseases | | | | classified elsewhere | | + + + + | 2025-04-18 15:16:03 | Hb-SS disease with crisis, | [facility] | | | unspecified (CMS/HCC V24, | | | | CMS/HCC V28) | | + + + + | 2025-04-18 15:16:03 | Anemia, unspecified | [facility] | + + + + | 2025-04-18 15:16:03 | Hypo-osmolality and | [facility] | | | hyponatremia | | + + + + | 2025-04-18 15:16:03 | Other chronic pain | [facility] | + + + + | 2025-04-18 15:16:03 | Gastro-esophageal reflux | [facility] | | | disease without esophagitis | | | | | | + + + + | 2025-04-18 15:16:03 | Dorsalgia, unspecified | [facility] | + + + + | 2025-04-18 15:16:03 | Bacteremia | [facility] | + + + + | 2025-04-18 15:16:03 | Tobacco use | [facility] | + + + + | 2025-05-19 14:12:04 | Hb-SS disease with crisis, | [facility] | | | unspecified ([facility] V24, | | | | CMS/[facility] V28) | | + + + + | 2025-05-19 14:12:04 | Other chronic pain | [facility] | + + + + | 2025-05-19 14:12:04 | 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 Results/Labs +--------+--------+ +---------+--------+---------+ | test | date | facility | value | unit | notes | +--------+--------+ +---------+--------+---------+ + + | Result panel 1 | + + + + + +---------+ + + | WBC # Bld | 2025-04-05 | | 19.80 | (missing) | (missing) | | Auto | 19:53:08 | [facility] | | | | [facility] | | | | + + + +---------+ + + + + | Result panel 2 | + + + + + + + + + | Bld Smear | 2025-04-05 | | SEE | (missing) | (missing) | | Interp | 19:53:08 | [facility] | COMMENTS [facility] | | | | + + + + + + + + + | Result panel 3 | + + + + + +--------+ + + | RBC # Bld | 2025-04-05 | | 2.30 | (missing) | (missing) | | Auto | 19:53:08 | [facility] | | | | + + + +--------+ + + + + | Result panel 4 | + + + + + +-------+ + + | Hgb | 2025-04-05 | | 7.7 | (missing) | (missing) | | Bld-mCnc | 19:53:08 | [facility] | | | | + + + +-------+ + + + + | Result panel 5 | + + + + + +--------+ + + | Hct VFr.DF | 2025-04-05 | | 24.0 | (missing) | (missing) | | Bld Auto | 19:53:08 | [facility] | | | | + + + +--------+ + + + + | Result panel 6 | + + + + + +---------+ + + | RBC Auto | 2025-04-05 | | 104.3 | (missing) | (missing) | | | 19:53:08 | [facility] | | | | + + + +---------+ + + + + | Result panel 7 | + + + + + +--------+ + + | MCH RBC Qn | 2025-04-05 | | 33.5 | (missing) | (missing) | | Auto | 19:53:08 | [facility] | | | | + + + +--------+ + + + + | Result panel 8 | + + + + + +--------+ + + | MCHC RBC | 2025-04-05 | | 32.1 | (missing) | (missing) | | Auto-EntMCnc | 19:53:08 | [facility] | | | | + + + +--------+ + + + + | Result panel 9 | + + + + + +-------+ + + | Platelet # | 2025-04-05 | | 228 | (missing) | (missing) | | Bld Auto | 19:53:08 | [facility] | | | | + + + +-------+ + + + + | Result panel 10 | + + + + + +--------+ + + | Neutrophils | 2025-04-05 | | 69.2 | (missing) | (missing) | | NFr Bld | 19:53:08 | [facility] | | | | | Auto | [facility] | | | | + + + +--------+ + + + + | Result panel 11 | + + + + + +--------+ + + | Lymphocytes | 2025-04-05 | | 21.9 | (missing) | (missing) | | NFr Bld | 19:53:08 | [facility] | | | | | Auto | [facility] | | | | + + + +--------+ + + + + | Result panel 12 | + + + + + +-------+ + + | Monocytes | 2025-04-05 | | 6.5 | (missing) | (missing) | | NFr Bld Auto | 19:53:08 | [facility] | | | | + + + +-------+ + + + + | Result panel 13 | + + + + + +-------+ + + | Eosinophil | 2025-04-05 | | 0.8 | (missing) | (missing) | | NFr Bld Auto | 19:53:08 | [facility] | | | | + + + +-------+ + + + + | Result panel 14 | + + + + + +-------+ + + | Basophils | 2025-04-05 | | 0.7 | (missing) | (missing) | | NFr Bld Auto | 19:53:08 | [facility] | | | | + + + +-------+ + + + + | Result panel 15 | + + + + + +------+---------+ + | Glucose | 2025-04-05 | | 93 | mg/dL | (missing) | | [facility] | 19:53:08 | [facility] | | | | + + + +------+---------+ + + + | Result panel 16 | + + + + + +-----+---------+ + | BUN | 2025-04-05 | | 9 | mg/dL | (missing) | | SerPl-mCnc | 19:53:08 | [facility] | | | | + + + +-----+---------+ + + + | Result panel 17 | + + + + + +--------+---------+ + | Creat | 2025-04-05 | | 0.93 | mg/dL | (missing) | | [facility] | 19:53:08 | [facility] | | | | + + + +--------+---------+ + + + | Result panel 18 | + + + + + +-------+ + + | eGFRcr | 2025-04-05 | | 103 | (missing) | (missing) | | SerPlBld | 19:53:08 | [facility] | | | | | CKD-EPI 2020 | [facility] | | | | + + + +-------+ + + + + | Result panel 19 | + + + + + +--------+ + + | BUN/Creat | 2025-04-05 | | 9.67 | (missing) | (missing) | | SerPl | 19:53:08 | [facility] | | | | + + + +--------+ + + + + | Result panel 20 | + + + + + +-------+ + + | Sodium | 2025-04-05 | | 139 | (missing) | (missing) | | SerPl-sCnc | 19:53:08 | [facility] | | | | + + + +-------+ + + + + | Result panel 21 | + + + + + +-------+ + + | Potassium | 2025-04-05 | | 3.9 | (missing) | (missing) | | SerPl-sCnc | 19:53:08 | [facility] | | | | + + + +-------+ + + + + | Result panel 22 | + + + + + +-------+ + + | Chloride | 2025-04-05 | | 108 | (missing) | (missing) | | SerPl-sCn | 19:53:08 | [facility] | | | | + + + +-------+ + + + + | Result panel 23 | + + + + + +------+ + + | CO2 | 2025-04-05 | | 20 | (missing) | (missing) | | SerPl-sCnc | 19:53:08 | [facility] | | | | + + + +------+ + + + + | Result panel 24 | + + + + + +--------+ + + | Anion Gap | 2025-04-05 | | 14.9 | (missing) | (missing) | | SerPl | 19:53:08 | [facility] | | | | | Calculated.4 | [facility] | | | | + + + +--------+ + + + + | Result panel 25 | + + + + + +-------+---------+ + | Calcium | 2025-04-05 | | 8.7 | mg/dL | (missing) | | SerPl-mCnc | 19:53:08 | [facility] | | | | + + + +-------+---------+ + + + | Result panel 26 | + + + + + +-------+ + + | Prot | 2025-04-05 | | 7.2 | (missing) | (missing) | | SerPl-mCherber | 19:53:08 | [facility] | | | | + + + +-------+ + + + + | Result panel 27 | + + + + + +-------+ + + | Albumin | 2025-04-05 | | 3.4 | (missing) | (missing) | | SerPl-Tom | 19:53:08 | [facility] | | | | + + + +-------+ + + + + | Result panel 28 | + + + + + +-------+ + + | Globulin | 2025-04-05 | | 3.8 | (missing) | (missing) | | Ser-Tom | 19:53:08 | [facility] | | | | + + + +-------+ + + + + | Result panel 29 | + + + + + +--------+ + + | | 2025-04-05 | | 0.89 | (missing) | (missing) | | Albumin/Glob | 19:53:08 | [facility] | | | | | [facility] | | | | + + + +--------+ + + + + | Result panel 30 | + + + + + +-------+---------+ + | Bilirub | 2025-04-05 | | 2.3 | mg/dL | (missing) | | SerPl-[facility]nc | 19:53:08 | [facility] | | | | + + + +-------+---------+ + + + | Result panel 31 | + + + + + +------+ + + | AST | 2025-04-05 | | 10 | (missing) | (missing) | | [facility] | 19:53:08 | [facility] | | | | + + + +------+ + + + + | Result panel 32 | + + + + + +------+ + + | ALT | 2025-04-05 | | 18 | (missing) | (missing) | | [facility] | 19:53:08 | [facility] | | | | + + + +------+ + + + + | Result panel 33 | + + + + + +------+ + + | ALP | 2025-04-05 | | 87 | (missing) | (missing) | | [facility] | 19:53:08 | [facility] | | | | + + + +------+ + + + + | Result panel 34 | + + + + + +------+ + + | Lipase | 2025-04-05 | | 26 | (missing) | (missing) | | [facility] | 19:53:08 | [facility] | | | | + + + +------+ + + + + | Result panel 35 | + + + + + +---------+ + + | WBC # Bld | 2025-05-17 | | 11.05 | (missing) | (missing) | | Auto | 16:05:08 | [facility] | | | | + + + +---------+ + + + + | Result panel 36 | + + + + + +------+ + + | Lymphocytes | 2025-05-17 | | 16 | (missing) | (missing) | | NFr Bld | 16:05:08 | [facility] | | | | | Manual [facility] | | | | + + + +------+ + + + + | Result panel 37 | + + + + + +-----+ + + | Monocytes | 2025-05-17 | | 3 | (missing) | (missing) | | NFr Bld | 16:05:08 | [facility] | [facility] | | | | + + + +-----+ + + + + | Result panel 38 | + + + + + + + + + | | 2025-05-17 | | MARKED | (missing) | (missing) | | Anisocytosis | 16::08 | [facility] | | | | | Bld Ql [facility] | | | | + + + + + + + + + | Result panel 39 | + + + + + + + + + | Macrocytes | 2025-05-17 | | PRESENT | (missing) | (missing) | | Bld Ql Smear | 16:05:08 | [facility] | | | | + + + + + + + + + | Result panel 40 | + + + + + + + + + | WBC morph | 2025-05-17 | | SEE COMMENT | (missing) | (missing) | | Bld | 16:05:08 | [facility] | | | | + + + + + + + + + | Result panel 41 | + + + + + +------+---------+ + | Glucose | 2025-05-17 | | 96 | mg/dL | (missing) | | SerPl-mCnc | 16:05:08 | [facility] | | | | + + + +------+---------+ + + + | Result panel 42 | + + + + + +-----+---------+ + | BUN | 2025-05-17 | | 9 | mg/dL | (missing) | | Noy-Tom | 16:05:08 | [facility] | | | | + + + +-----+---------+ + + + | Result panel 43 | + + + + + +--------+---------+ + | Creat | 2025-05-17 | | 0.90 | mg/dL | (missing) | | SerPl-mCnc | 16:05:08 | [facility] | | | | + + + +--------+---------+ + + + | Result panel 44 | + + + + + +-------+ + + | eGFRcr | 2025-05-17 | | 107 | (missing) | (missing) | | SerPlBld | 16:05:08 | [facility] | | | | | CKD-EPI 2020 | | - | | | | | | [facility] | | | | + + + +-------+ + + + + | Result panel 45 | + + + + + +---------+ + + | BUN/Creat | 2025-05-17 | | 10.00 | (missing) | (missing) | | SerPl | 16:05:08 | [facility] | | | | + + + +---------+ + + + + | Result panel 46 | + + + + + +--------+ + + | RBC # Bld | 2025-05-17 | | 2.49 | (missing) | (missing) | | Auto | 16:05:08 | [facility] | | | | + + + +--------+ + + + + | Result panel 47 | + + + + + +-------+ + + | Sodium | 2025-05-17 | | 140 | (missing) | (missing) | | SerPl-sCnc | 16:05:08 | [facility] | | | | + + + +-------+ + + + + | Result panel 48 | + + + + + +-------+ + + | Potassium | 2025-05-17 | | 4.0 | (missing) | (missing) | | SerPl-sCnc | 16:05:08 | [facility] | | | | + + + +-------+ + + + + | Result panel 49 | + + + + + +-------+ + + | Chloride | 2025-05-17 | | 106 | (missing) | (missing) | | Ser[facility] | 16:05:08 | [facility] | | | | + + + +-------+ + + + + | Result panel 50 | + + + + + +------+ + + | CO2 | 2025-05-17 | | 24 | (missing) | (missing) | | SerPl-sCnc | 16:05:08 | [facility] | | | | + + + +------+ + + + + | Result panel 51 | + + + + + +--------+ + + | Anion Gap | 2025-05-17 | | 14.0 | (missing) | (missing) | | SerPl | 16:05:08 | [facility] | | | | | Calculated.4 | [facility] | | | | + + + +--------+ + + + + | Result panel 52 | + + + + + +-------+---------+ + | Calcium | 2025-05-17 | | 9.3 | mg/dL | (missing) | | SerPl-mCnc | 16:05:08 | [facility] | | | | + + + +-------+---------+ + + + | Result panel 53 | + + + + + +-------+ + + | Prot | 2025-05-17 | | 8.4 | (missing) | (missing) | | SerPl-mCherber | 16:05:08 | [facility] | | | | + + + +-------+ + + + + | Result panel 54 | + + + + + +-------+ + + | Albumin | 2025-05-17 | | 3.4 | (missing) | (missing) | | SerPl-Tom | 16:05:08 | [facility] | | | | | [facility] | | | | + + + +-------+ + + + + | Result panel 55 | + + + + + +-------+ + + | Globulin | 2025-05-17 | | 5.0 | (missing) | (missing) | | Ser-Tom | 16:05:08 | [facility] | | | | + + + +-------+ + + + + | Result panel 56 | + + + + + +--------+ + + | | 2025-05-17 | | 0.68 | (missing) | (missing) | | Albumin/Glob | 16:05:08 | [facility] | | | | | [facility]Pl [facility] | | | | + + + +--------+ + + + + | Result panel 57 | + + + + + +-------+ + + | Hgb | 2025-05-17 | | 8.3 | (missing) | (missing) | | Bld-mCnc | 16:05:08 | [facility] | | | | + + + +-------+ + + + + | Result panel 58 | + + + + + +-------+---------+ + | Bilirub | 2025-05-17 | | 0.7 | mg/dL | (missing) | | Noy-Tom | 16:05:08 | [facility] | | | | + + + +-------+---------+ + + + | Result panel 59 | + + + + + +------+ + + | AST | 2025-05-17 | | 13 | (missing) | (missing) | | [facility] | | | | + + + +------+ + + + + | Result panel 60 | + + + + + +------+ + + | ALT | 2025-05-17 | | 14 | (missing) | (missing) | | [facility] | 16:05:08 | [facility] | | | | + + + +------+ + + + + | Result panel 61 | + + + + + +-------+ + + | ALP | 2025-05-17 | | 119 | (missing) | (missing) | | SerPl-cCnc | 16:05:08 | [facility] | | | | + + + +-------+ + + + + | Result panel 62 | + + + + + +--------+ + + | Hct VFr.DF | 2025-05-17 | | 24.6 | (missing) | (missing) | | Bld Auto | 16:05:08 | [facility] | | | | + + + +--------+ + + + + | Result panel 63 | + + + + + +--------+ + + | RBC Auto | 2025-05-17 | | 98.8 | (missing) | (missing) | | | 16:05:08 | [facility] | | | | + + + +--------+ + + + + | Result panel 64 | + + + + + +--------+ + + | MCH RBC Qn | 2025-05-17 | | 33.3 | (missing) | (missing) | | Auto | 16:05:08 | [facility] | | | | + + + +--------+ + + + + | Result panel 65 | + + + + + +--------+ + + | MCHC RBC | 2025-05-17 | | 33.7 | (missing) | (missing) | | Auto-EntMCnc | 16:05:08 | [facility] | | | | + + + +--------+ + + + + | Result panel 66 | + + + + + +-------+ + + | Platelet # | 2025-05-17 | | 462 | (missing) | (missing) | | Bld Auto | 16:05:08 | [facility] | | | | + + + +-------+ + + + + | Result panel 67 | + + + + + +------+ + + | Neuts Seg | 2025-05-17 | | 81 | (missing) | (missing) | | NFr Bld | 16:05:08 | [facility] | | | | | [...] units | + + + +---------+ | 2025-04-05 00:00 | BMI | 22.9 | kg/m2 | + + + +---------+ | 2025-04-05 00:00 | height_metric | 185.42 | cm | + + + +---------+ | 2025-04-05 00:00 | height_standard | 73 | in | + + + +---------+ | 2025-04-05 00:00 | weight_metric | 78.8 | kg | + + + +---------+ | 2025-04-05 00:00 | weight_standard | 173.725 | lb | + + + +---------+ | 2025-04-06 00:00 | BP_diastolic | 93 | mmHg | + + + +---------+ | 2025-04-06 00:00 | BP_systolic | 156 | mmHg | + + + +---------+ | 2025-04-06 00:00 | heart_rate | 95 | /min | + + + +---------+ | 2025-04-06 00:00 | o2_saturation | 910 | % | + + + +---------+ | 2025-04-06 00:00 | respiration_rate | 18 | /min | + + + +---------+ | 2025-04-06 00:00 | | 98.1 | F | | | temperature_standar | | | | | d | | | + + + +---------+ | 2025-05-17 00:00 | BMI | 22.9 | kg/m2 | + + + +---------+ | 2025-05-17 00:00 | BP_diastolic | 82 | mmHg | + + + +---------+ | 2025-05-17 00:00 | BP_systolic | 137 | mmHg | + + + +---------+ | 2025-05-17 00:00 | heart_rate | 70 | /min | + + + +---------+ | 2025-05-17 00:00 | height_metric | 185.42 | cm | + + + +---------+ | 2025-05-17 00:00 | height_standard | 73 | in | + + + +---------+ | 2025-05-17 00:00 | o2_saturation | 100 | % | + + + +---------+ | 2025-05-17 00:00 | respiration_rate | 15 | /min | + + + +---------+ | 2025-05-17 00:00 | | 97.6 | F | | | temperature_standar | | | | | d | | | + + + +---------+ | 2025-05-17 00:00 | weight_metric | 78.8 | kg | + + + +---------+ | 2025-05-17 00:00 | weight_standard | 173.725 | lb | + + + +---------+"
[~2025-05-29 16:35] MED LIST changes: +CEFAZOLIN SODIUM1 GM INJ
[2025-05-29] MEDS ORDERED: HYDROmorphone HCL 1 MG/ML SYR IV ONE ×2 (18:00→20:15)
== END 2025-05-29 20:45 | disposition home or self-care (01) ==
LOC: ED 16:35
DX: D57.1 Sickle-cell disease without crisis (principal); F17.200 Nicotine dependence, unspecified, uncomplicated; Z79.899 Other long term (current) drug therapy; Z88.5 Allergy status to narcotic agent; Z91.013 Allergy to seafood; Z88.0 Allergy status to penicillin; Z88.1 Allergy status to other antibiotic agents
CPT/HCPCS: 96374; 96376; 99283-25; J1171

== ENCOUNTER 2025-05-31 15:05 | Emergency (ER) | payer MEDICARE, OTHER ==
[~2025-05-31] VITALS: Ht 185.4 cm; Wt 74.3 kg
--- OUTSIDE RECORDS SUMMARY | ~2025-05-31 | XMS | Continuity of Care Document ---
Demographics + + + | Address | [address] | | | [place] [address] | + + + | Preferred Language | Unknown | + + + | Marital Status | Never | + + + | Jain Affiliation | Unknown | + + + | Race | Unknown | + + + | Ethnic Group | Not or | + + + Author + + + | Author | [facility] | + + + | Organization | [facility] | + + + | Address | [address] | | | [place] [address] | + + + | Phone | | + + + Care Team Providers + + + + | Care Journalism Professor Name | Role | Phone | + [...] | (no severity) | | 10:00 | [id number]^HYDROMOR | | | | | | PHONE | | | | | | (FRANCISCO)^DUSTIN_ | | | | | | SANDRA-hSeyla | | | | + + + + + + | 2023-12-27 | | IHDE | Anaphylaxis | (no severity) | | 10:00 | [id number]^SHELLFISH | | | | | | | [...] | | | | | | | CELLS^EVELINSEBASTIANS- | | | | | | Epic | | | | + + + + + + | 2016-02-29 | [id number]^FISH | IHDE | Hives | (no severity) [...] + | (no date) | ONDANSETRON | [facility] | | | [facility] | + + + + | (no date) | ONDANSETRON | [facility] | | | [facility] | + + + + | (no date) | OXYCODONE HCL | [facility] | | | | [facility] | + + + + | (no date) | OXYCODONE HCL | [facility] | | | | [facility] | + + + + | (no date) | OXYCODONE HCL | [facility] | | | | [facility] | + + + + | (no date) | DIPHENHYDRAMINE HCL | [facility] | | | | [facility] | + + + + | (no date) | DIPHENHYDRAMINE HCL | [facility] | | | | [facility] | + + + + | (no date) | DIPHENHYDRAMINE HCL | [facility] | | | [facility] | + + + + | (no date) | RIVAROXABAN | [facility] | | [facility] | + + + + | (no date) | RIVAROXABAN | [facility] | | | [facility] | + + + + | (no date) | RIVAROXABAN | [facility] | | | [facility] | + + + + | (no date) | LEVOMILNACIPRAN | [facility] | | | HYDROCHLORIDE | [facility] | + + + + | (no date) | LEVOMILNACIPRAN | [facility] | | | HYDROCHLORIDE | [facility] | + + + + | (no date) | LEVOMILNACIPRAN | [facility] | | | HYDROCHLORIDE | [facility] | + + + + | (no date) | CEFAZOLIN SODIUM | [facility] | | | [facility] | + + + + | (no date) | Naloxone HCl | [facility] | | | [facility] | + + + + | (no date) | Naloxone HCl | [facility] | | | [facility] | + + + + | (no date) | Naloxone HCl | [facility] | | | [facility] | + + + + | (no date) | CLONAZEPAM | [facility] | | | [facility] | + + + + | (no date) | CLONAZEPAM | [facility] | | | [facility] | + + + + | (no date) | CLONAZEPAM | [facility] | | | [facility] | + + + + | (no date) | HYDROXYUREA | [facility] | | | [facility] | + + + + | (no date) | HYDROXYUREA | [facility] | | | | [facility] | + + + + | (no date) | HYDROXYUREA | [facility] | | | [facility] | + + + + | (no date) | NORTRIPTYLINE HCL | [facility] | | | [facility] | + + + + | (no date) | NORTRIPTYLINE HCL | [facility] | | | [facility] | + + + + | (no date) | NORTRIPTYLINE HCL | [facility] | | | [facility] | + + + + | (no date) | ACETAMINOPHEN | [facility] | | | [facility] | + + + + | (no date) | ACETAMINOPHEN | [facility] | | | [facility] | + + + + | (no date) | ACETAMINOPHEN | [facility] | | | [facility] | + + + + | (no date) | FOLIC ACID | [facility] | | | [facility] | + + + + | (no date) | FOLIC ACID | [facility] | | | [facility] | + + + + | (no date) | FOLIC ACID | [facility] | | | [facility] | + + + + | (no date) | OMEPRAZOLE | [facility] | | | | [facility] | + + + + | (no date) | OMEPRAZOLE | [facility] | | | | [facility] | + + + + | (no date) | OMEPRAZOLE | [facility] | | | | [facility] | + + + + | (no date) | CYANOCOBALAMIN (VITAMIN | [facility] | | | B-12) | [facility] | + + + + | (no date) | CYANOCOBALAMIN (VITAMIN | [facility] | | | B-12) | [facility] | + + + + | (no date) | CYANOCOBALAMIN (VITAMIN | [facility] | | | B-12) | [facility] | + + + + | (no date) | FAMOTIDINE | [facility] | | | | [facility] | + + + + | (no date) | FAMOTIDINE | [facility] | | | | [facility] | + + + + | (no date) | FAMOTIDINE | [facility] | | | | [facility] | + + + + | (no date) | GABAPENTIN | [facility] | | | [facility] | + + + + | (no date) | GABAPENTIN | [facility] | | | [facility] | + + + + | (no date) | GABAPENTIN | [facility] | | | [facility] | + + + + | (no date) | SENNOSIDES | [facility] | | | [facility] | + + + + | (no date) | SENNOSIDES | [facility] | | | [facility] | + + + + | (no date) | SENNOSIDES | [facility] | | | [facility] | + + + + | (no date) | HYDROMORPHONE HCL | [facility] | | | | [facility] | + + + + | (no date) | HYDROMORPHONE HCL | [facility] | | | [facility] | + + + + | (no date) | HYDROMORPHONE HCL | [facility] | | | [facility] | + + + + | (no date) | HYDROMORPHONE HCL | [facility] | | | [facility] | + + + + | (no date) | HYDROMORPHONE HCL | [facility] | | | [facility] | + + + + | (no date) | HYDROMORPHONE HCL | [facility] | | | [facility] | + + + + Problems [...] IHDE | + + + + | 2025-05-30 10:09:23 | Vomiting | IHDE | + + + + | 2025-05-30 14:33:57 | Chest pain, unspecified | IHDE | + + + + | 2025-05-30 14:33:57 | Vomiting, unspecified | IHDE | + + + + | 2025-05-30 14:33:57 | Diarrhea, unspecified | IHDE | + + + + | 2025-05-30 14:33:57 | Other nonspecific abnormal | IHDE | | | finding of lung field | | + + + + Procedures [...] (missing) | | Interp | 19:53:08 | [facility] | COMMENTS | | | | | [...] 93 | mg/dL | (missing) | | [facility] | 19:53:08 | [facility] | | | [...] 9 | mg/dL | (missing) | | SerPTran | 19:53:08 | [facility] | | | [...] 0.93 | mg/dL | (missing) | | Noy-Tom | 19:53:08 | [facility] | | | [...] 7.2 | (missing) | (missing) | | [facility] | 19:53:08 | [facility] | | [...] 3.4 | (missing) | (missing) | | SerPl-nc | 19:53:08 | [facility] | | | [...] 3.8 | (missing) | (missing) | | Ser-[facility] [address] | 19:53:08 | [facility] | | | [...] 10 | (missing) | (missing) | | SerPl-cCnc [...] 18 | (missing) | (missing) | | SerPl-cCnc [...] 87 | (missing) | (missing) | | SerPl-cCn [...] (missing) | (missing) | | Anisocytosis | 16:05:08 | [facility] | | | [...] 9 | mg/dL | (missing) | | Lul[facility] | 16:05:08 | [facility] | | | [...] 0.90 | mg/dL | (missing) | | SerPl-Tom | 16:05:08 [...] 106 | (missing) | (missing) | | SerPl-sCnc [...] 8.4 | (missing) | (missing) | | Ady-[facility] [address] | 16:05:08 | [facility] | | | [...] 3.4 | (missing) | (missing) | | SerPl-mCnc | 16:05:08 [...] 5.0 | (missing) | (missing) | | Ser-mCnc | 16:05:08 | [facility] | | | [...] 0.7 | mg/dL | (missing) | | SerPl-mCnc [...] 13 | (missing) | (missing) | | SerPl-cCnc [...] 14 | (missing) | (missing) | | [facility] | 16:05:08 | [facility] | | | [...] 119 | (missing) | (missing) | | SerPl-cCn | 16:05:08 | [facility] | | | [...]
[2025-05-31] MEDS ORDERED: OXYCODONE HCL5 M3 (15:21)
[2025-05-31] MEDS ORDERED: NORTRIPTYLINE H50 MG (15:21)
[2025-05-31 15:29] LABS: BASOPHILS 0.6 % (0.2-1.2); EOSINOPHILS 0.6 % (0.8-7.0); LYMPHOCYTES 29.1 % (21.8-53.1); MCH 36.2 PG (25.7-32.2); MCHC 34.0 g/dL (32.3-36.5); MCV 106.3 fL (79.0-92.2); MONOCYTES 7.8 % (5.3-12.2); NEUTROPHILS 61.7 % (34.0-67.9); RBC 2.71 M/uL (4.63-6.08)
[2025-05-31] MEDS ORDERED: SODIUM CHLORIDE 0.9% 1,000 ML IV PRN (15:30)
[2025-05-31 15:45] LABS: ALT (SGPT) 17.0 U/L (14-59); AST (SGOT) 9.0 U/L (15-37); GLOMERULAR FILTRATION RATE,EST 74.0 mL/min (>60); PROTEIN, TOTAL 8.7 g/dL (6.4-8.2); UREA NITROGEN 11.0 mg/dL (7-18)
[2025-05-31 17:05] LABS: BLOOD/HGB, URINE NEGATIVE (Negative); KETONE, URINE NEGATIVE (Negative); LEUK ESTERASE, URINE NEGATIVE (negative); NITRITE, URINE NEGATIVE (negative)
[2025-05-31 17:20] LABS: BACTERIA, URINE NONE SEEN /hpf (negative); CASTS, URINE NONE SEEN \\lpf; CRYSTALS, URINE NONE SEEN (0-1+); EPITHELIAL CELLS, URINE NONE SEEN /lpf (0-1+); REFLEX CULTURE, URINE No (No)
[2025-05-31] MEDS ORDERED: DOXYCYCLINE HY100 MG PO (18:49)
== END 2025-05-31 19:00 | disposition home or self-care (01) ==
LOC: ED 15:05
PROVIDERS: Emergency Medicine
DX: R10.9 Unspecified abdominal pain (principal); F17.200 Nicotine dependence, unspecified, uncomplicated; Z79.899 Other long term (current) drug therapy; Z88.0 Allergy status to penicillin; Z88.1 Allergy status to other antibiotic agents; Z88.5 Allergy status to narcotic agent; Z91.013 Allergy to seafood
CPT/HCPCS: 36415; 74177; 80053; 81001; 83690; 83735; 85025; 85060; 96361; 96374; 96375; 96376; 99284-25; J1171; J2405; J7030